=== PATIENT | female | born 1970 | race Caucasian/White ===

== ENCOUNTER 2017-11-19 11:38 | Emergency (ER) | payer BC ==
[2017-11-19 12:00] VITALS: RESP 18
--- NOTE | 2017-11-19 12:31 | ED ---
Dizziness HPI - General Chief Complaint: Dizziness Stated Complaint: dizzy Time Seen by Provider: 11/19/17 12:16 Source: patient Mode of arrival: ambulatory Limitations: no limitations - History of Present Illness Initial Comments: This 47-year-old white female presents with a complaint of some dizziness. She describes it as a spinning type of sensation. It is sometimes related to postural changes. The onset occurred this morning. She does complain of some slight left ear pain and fullness. She apparently has a long history of similar symptoms. She just had a left ear tube placed a couple months ago due to chronic left ear infections associated with dizziness. She denies any drainage from this tube. She cannot remember the ENT physician's name that placed at but it is not out of our hospital. She denies any fevers or chills. She does relate a degree of anxiety. She also requests a work note. She has had Antivert in the past and this seems to help. No other complaints or modifying factors. - Related Data Home Medications Medication Instructions Recorded Confirmed Baclofen [Lioresal] 10 mg PO TID PRN 11/19/17 11/19/17 Cymbalta(Unknown Dose) 1 cap PO BID 11/19/17 11/19/17 HYDROcodone/APAP 10-325MG [[place] 1 tab PO TID PRN 11/19/17 11/19/17 10-325] Omeprazole [PriLOSEC] 20 mg PO DAILY 11/19/17 11/19/17 Previous Rx's Medication Instructions Recorded Amoxic-Pot Clav 875-125Mg 1 each PO Q12HR #20 tablet 11/19/17 [Augmentin Xr 875-125] Meclizine [Antivert] 25 mg PO TID PRN #20 tab 11/19/17 Allergies Allergy/AdvReac Type Severity Reaction Status Date / Time Sulfa (Sulfonamide Allergy Rash/Hives Verified 11/19/17 12:03 Antibiotics) Review of Systems ROS Statement: Those systems with pertinent positive or pertinent negative responses have been documented in the HPI. ROS Other: All systems not noted in ROS Statement are negative. Past Medical History Past Medical History: GERD/Reflux Additional Past Medical History / Comment(s): DDD History of Any Multi-Drug Resistant Organisms: None Reported Past Surgical History: Appendectomy, Section Additional Past Surgical History / Comment(s): liver tumr removed Past Psychological History: Depression Smoking Status: Current every day smoker Past Alcohol Use History: Occasional Past Drug Use History: Marijuana General Exam - General Exam Comments Initial Comments: GENERAL: The patient is well nourished and well hydrated. VITAL SIGNS: Heart rate, blood pressure, respiratory rate reviewed as recorded in nurse's notes. EYES: Pupils are round and reactive. Extraocular movements are intact. No conjunctival / lid redness or swelling. ENT: No external evidence of injury, swelling, or ecchymosis. Airway is patent. Throat is clear. The right ear is clear. Left tympanic membrane does have an ear tube in place. There is no current drainage. There may be some mild surrounding erythema. There is some mild wax noted. NECK: Nontender. No swelling or evidence of injury. No subcutaneous emphysema. Trachea is midline. No thyroid mass. HEART: Regular rate and rhythm. Good peripheral pulses. LUNGS/CHEST: Breath sounds clear and equal bilaterally. No rales, rhonchi, or wheezes. No ecchymosis, subcutaneous emphysema, or tenderness. ABDOMEN: Abdomen soft without tenderness. No palpable masses or organomegaly. No peritoneal signs. No abdominal wall swelling or ecchymosis. EXTREMITIES: No extremity tenderness. Normal muscle tone and function. No thoracolumbar tenderness. NEUROLOGIC: Sensation is grossly intact. Cranial nerve exam reveals face is symmetrical, tongue is midline, speech is clear. SKIN: No abrasions or ecchymosis is noted. No induration or masses noted. PSYCHIATRIC: Alert and oriented. Appropriate behavior and judgment. Limitations: no limitations Course Vital Signs 11/19/17 11:56 Temperature 98.3 F Pulse Rate 86 Respiratory 18 Rate Blood Pressure 122/58 O2 Sat by Pulse 96 Oximetry Medical Decision Making - Medical Decision Making The patient is seen and examined. It is felt as though she likely does have a degree of vertigo. This is likely due to a left ear infection versus chronic vertigo associated with her left ear. She appears quite well clinically. She does have some anxiety and states that her fianc 2 weeks ago and she thinks kicked out of her house. It is felt that she should follow-up closely with her primary care physician and/or a psychologist in this regard. She appears stable for discharge and will be treated with antibiotics for likely left otitis media. This felt as though her left ear to potentially could be blocked with wax and that she should follow-up closely with her yearsand throat physician for further evaluation in this regard. Disposition Clinical Impression: Vertigo, Anxiety, Left otitis media Disposition: HOME SELF-CARE Condition: Fair Instructions: Vertigo (ED), Otitis Media (ED), Anxiety (ED) Prescriptions: Amoxic-Pot Clav 875-125Mg [Augmentin Xr 875-125] 1 each PO Q12HR #20 tablet Meclizine [Antivert] 25 mg PO TID PRN #20 tab PRN Reason: Vertigo Is patient prescribed a controlled substance at d/c from ED?: No Referrals: None,Stated [Primary Care Provider] - 1-2 days Time of Disposition: 12:30
[2017-11-19] MEDS ORDERED: MECLIZINE 12.5 MG TAB PO STA (12:33)
[2017-11-19 13:05] VITALS: BP 125/79; PULSE 76; TEMP 98.4
== END 2017-11-19 13:05 | disposition home or self-care (01) ==
LOC: EC 11:38
DX: H66.92 Otitis media, unspecified, left ear (principal); R42 Dizziness and giddiness; F41.9 Anxiety disorder, unspecified; K21.9 Gastro-esophageal reflux disease without esophagitis; F32.9 Major depressive disorder, single episode, unspecified; F17.200 Nicotine dependence, unspecified, uncomplicated; Z96.22 Myringotomy tube(s) status; Z79.899 Other long term (current) drug therapy; Z88.2 Allergy status to sulfonamides
CPT/HCPCS: 99283

== ENCOUNTER 2018-01-16 08:35 | Emergency (ER) | payer BC ==
[2018-01-16 08:45] VITALS: RESP 17; TEMP 98.4
[2018-01-16] MEDS ORDERED: MORPHINE SULFATE 2 MG/ML SYRINGE IVP STA (08:56)
[2018-01-16] MEDS ORDERED: SODIUM CHLORIDE 0.9% 1,000 ML IV STA (08:56)
[2018-01-16] MEDS ORDERED: NITROGLYCERIN OINT 1 INCH/GM PACKET TOPICAL STA (08:56)
--- NOTE | 2018-01-16 09:01 | ED ---
Chest Pain HPI - General Chief Complaint: Chest Pain Stated Complaint: CHEST PAIN Time Seen by Provider: 01/16/18 08:45 Source: patient, EMS Mode of arrival: EMS Limitations: no limitations - History of Present Illness Initial Comments: 47 years old female with the chest pain, she woke up for 30 the morning to go to work when she arrived at work she noticed chest pain that was around 7:30 AM she was dizzy she felt like she is going to pass out chest pain was going towards her neck and the left arm she noticed nausea no vomiting she had a cold sweats. Also complaining about shortness of breath and chest pain gets worse with deep breaths. No abdominal pain no frequency urgency dysuria no symptoms of TIA or CVA - Related Data Home Medications Medication Instructions Recorded Confirmed HYDROcodone/APAP 10-325MG [[place] 1 tab PO TID PRN 11/19/17 01/16/18 10-325] Omeprazole [PriLOSEC] 20 mg PO DAILY 11/19/17 01/16/18 Baclofen [Lioresal] 20 mg PO BID 01/16/18 01/16/18 DULoxetine HCL [Cymbalta] 30 mg PO BID 01/16/18 01/16/18 Allergies Allergy/AdvReac Type Severity Reaction Status Date / Time Sulfa (Sulfonamide Allergy Rash/Hives Verified 01/16/18 09:56 Antibiotics) Review of Systems ROS Statement: Those systems with pertinent positive or pertinent negative responses have been documented in the HPI. ROS Other: All systems not noted in ROS Statement are negative. EKG Findings - EKG Comments: EKG Findings:: EKG is normal sinus, ventricular rate is 69 ND interval is 152 QRS duration is 92 QT/QTc is 396/424 review of this EKG does not reveal any ST elevation or ST depression Past Medical History Past Medical History: GERD/Reflux Additional Past Medical History / Comment(s): DDD History of Any Multi-Drug Resistant Organisms: None Reported Past Surgical History: Appendectomy, Section Additional Past Surgical History / Comment(s): liver tumr removed Past Psychological History: Depression Smoking Status: Current every day smoker Past Alcohol Use History: Occasional Past Drug Use History: Marijuana General Exam - General Exam Comments Initial Comments: General: The patient is awake and alert, in no distress, and does not appear acutely ill. Skin: Skin is warm and dry and no rashes or lesions are noted. Eye: Pupils are equal, round and reactive to light, extra-ocular movements are intact; there is normal conjunctiva bilaterally. Ears, nose, mouth and throat: There are moist mucous membranes and no oral lesions. Neck: The neck is supple, there is no tenderness or JVD. Cardiovascular: There is a regular rate and rhythm. No murmur, rub or gallop is appreciated. Respiratory: To auscultation bilateral, exam consistent with a moderate COPD Gastrointestinal: Soft, non-distended, non-tender abdomen without masses or organomegaly noted. There is no rebound or guarding present. Bowel sounds are unremarkable. Back: There is no tenderness to palpation in the midline. There is no obvious deformity. Musculoskeletal: Normal ROM, no tenderness, There is no pedal edema. There is no calf tenderness or swelling. No cords were appreciated. Neurological: CN II-XII intact, Cranial nerves III through XII are intact. There are no obvious motor or sensory deficits. Coordination appears grossly intact. Speech is normal. Psychiatric: Cooperative, stress, she recently lost her feels depressed but denies any suicidal or homicidal ideation Limitations: no limitations Course Vital Signs 01/16/18 01/16/18 08:41 10:06 Temperature 98.4 F Pulse Rate 71 70 Respiratory 17 17 Rate Blood Pressure 128/66 147/79 O2 Sat by Pulse 99 98 Oximetry She was reassessed at 10 AM, troponin was delayed for somehow delaying the disposition troponin is unremarkable EKG is unremarkable CBC, compressive metabolic metabolic panel and chest imaging are totally within normal range. Considering that she is 47 years old and now she has smoked for a long time I had recommended that she stays in the hospital observation for 3 sets of cardiac markers and cardiology consult so we could proceed with a definitive evaluation as far as ischemic heart disease is concerned that she wants to leave , however 15 minutes I did explain the patient that she stays in the hospital and she made her intention clear that she wants to leave. She was advised to call [facility] in the morning to make up a follow-up appointment she agreed with that education and counseling was done about smoking cessation as well Disposition Clinical Impression: Chest pain Disposition: Left Against Medical Advice Condition: Fair Instructions: Chest Pain (ED) Additional Instructions: Is advised to take aspirin 81 mg by mouth daily Is patient prescribed a controlled substance at d/c from ED?: No Referrals: Krishna Canas MD [Primary Care Provider] - 1-2 days
[2018-01-16 09:08] LABS: Basophils % (A) 0 %; Eosinophils # (A) 0.4 k/uL (0-0.7); Eosinophils % (A) 4 %; HCT 37.2 % (34.0-46.0); HGB 12.3 gm/dL (11.4-16.0); Lymphocytes # (A) 3.5 k/uL (1.0-4.8); Lymphocytes % (A) 39 %; MCH 31.5 pg (25.0-35.0); MCHC 33.2 g/dL (31.0-37.0); MCV 95.1 fL (80.0-100.0); Mean Platelet Volume 7.2; Monocytes # (A) 0.5 k/uL (0-1.0); Monocytes % (A) 5 %; Neutrophils # (A) 4.4 k/uL (1.3-7.7); Neutrophils % (A) 49 %; Platelet Count 280 k/uL (150-450); RBC 3.91 m/uL (3.80-5.40); RDW 13.2 % (11.5-15.5); WBC 8.9 k/uL (3.8-10.6)
[2018-01-16 09:19] LABS: Albumin 3.9 g/dL (3.5-5.0); Calcium 9.7 mg/dL (8.4-10.2); Magnesium 1.9 mg/dL (1.6-2.3); Potassium 4.2 mmol/L (3.5-5.1); Total Bilirubin 0.3 mg/dL (0.2-1.3); Total Protein 6.1 g/dL (6.3-8.2)
[2018-01-16 09:21] LABS: D-Dimer 0.24 mg/L FEU (<0.60); Prothrombin Time 9.5 sec (9.0-12.0)
[2018-01-16 09:28] LABS: Creatine Kinase 60 U/L (30-135)
[2018-01-16 09:41] LABS: Creatine Kinase MB 0.3 ng/mL (0.0-2.4); Troponin I <0.012 ng/mL (0.000-0.034)
--- NOTE | 2018-01-16 09:56 | XR ---
EXAMINATION TYPE: XR chest 2V DATE OF EXAM: 01/16/2018 COMPARISON: NONE TECHNIQUE: PA and lateral views submitted. HISTORY: Chest pain FINDINGS: The lungs are clear and there is no pneumothorax, pleural effusion, or focal pneumonia. Hypertrophi c and degenerative change of the spine. Hyperinflation suggests COPD. Biapical pleural thickening. IMPRESSION: 1. No acute process.
[2018-01-16 10:09] VITALS: BP 147/79; PULSE 70
--- NOTE | 2018-01-20 02:20 | CDI ---
Documentation Clarification OP Dear Gatito SANDRA MD Please provide smoking cessation time. Thank you, Nando Oviedo [employer] Administrator If you have any questions, please contact [facility] at [phone] [facility]
== END 2018-01-16 10:28 | disposition left against medical advice (07) ==
LOC: EC 08:35
DX: R07.1 Chest pain on breathing (principal); R06.02 Shortness of breath; R11.0 Nausea; K21.9 Gastro-esophageal reflux disease without esophagitis; F32.9 Major depressive disorder, single episode, unspecified; F17.200 Nicotine dependence, unspecified, uncomplicated; Z71.6 Tobacco abuse counseling; Z79.899 Other long term (current) drug therapy; Z88.2 Allergy status to sulfonamides
CPT/HCPCS: 99285; 99407; 96374; 96361; 36415; 93005; 85379; 80053; 82550; 82553; 83735; 84484; 85025; 85610; 85730; 71046; J2270

== ENCOUNTER 2018-04-09 13:30 | Inpatient (IN) | payer BC ==
[2018-04-09] MEDS ORDERED: MORPHINE SULFATE 2 MG/ML SYRINGE IVP STA (14:36)
[2018-04-09] MEDS ORDERED: LORazepam 2 MG/ML INJ IV STA (14:37)
--- NOTE | 2018-04-09 14:44 | ED ---
General Adult HPI - General Chief complaint: Dizziness Stated complaint: Dizziness/weakness Time Seen by Provider: 04/09/18 13:35 Source: patient, RN notes reviewed Mode of arrival: ambulatory Limitations: no limitations - History of Present Illness Initial comments: This is a 48-year-old female presents emergency department stating that on Saturday she had chest pain that radiated to her left arm and she had tingling in her left arm. Patient stated that hasn't occurred until again this morning. Patient states the reason she came in however she was at work and started having a headache yesterday and throughout the night it got worse this morning it was at its peak. Patient states the pain was so bad this morning she vomited times one. Patient states since that time the headache has gotten better but it is not gone away. Patient states she also this morning had chest pain again with tingling in the left arm. [facility] were concerned about her chest pain as well as about the headache so they sent to the emergency department. Patient states she has no weakness in the left arm though [facility] told me that they thought she had weakness patient adamantly denied it and stated it was only tingling. Patient denies any nausea at this time. Patient denies any belly pain at this time patient denies any recent fever chills or cough. Patient denies any neck pain or stiffness. Patient states she's been under quite a bit of stress since October when her fianc and since then she's been kicked out of her apartment and is been struggling a bit. - Related Data Home Medications Medication Instructions Recorded Confirmed HYDROcodone/APAP 10-325MG [[place] 1 tab PO TID PRN 11/19/17 04/09/18 10-325] Omeprazole [PriLOSEC] 20 mg PO DAILY 11/19/17 04/09/18 Baclofen [Lioresal] 20 mg PO TID PRN 01/16/18 04/09/18 DULoxetine HCL [Cymbalta] 30 mg PO BID 01/16/18 04/09/18 ALPRAZolam [Xanax] 0.25 mg PO BID PRN 04/09/18 04/09/18 Allergies Allergy/AdvReac Type Severity Reaction Status Date / Time Sulfa (Sulfonamide Allergy Rash/Hives Verified 04/09/18 15:47 Antibiotics) Review of Systems ROS Statement: Those systems with pertinent positive or pertinent negative responses have been documented in the HPI. ROS Other: All systems not noted in ROS Statement are negative. Past Medical History Past Medical History: GERD/Reflux Additional Past Medical History / Comment(s): DDD History of Any Multi-Drug Resistant Organisms: None Reported Past Surgical History: Appendectomy, Section Additional Past Surgical History / Comment(s): liver tumor removed Past Psychological History: Depression Smoking Status: Current every day smoker Past Alcohol Use History: Occasional Past Drug Use History: Marijuana General Exam - General Exam Comments Initial Comments: GENERAL: Patient is well-developed and well-nourished. Patient is nontoxic and well- hydrated and is in mild distress. ENT: Neck is soft and supple. No significant lymphadenopathy is noted. Oropharynx is clear. Moist mucous membranes. Neck has full range of motion without eliciting any pain. EYES: The sclera were anicteric and conjunctiva were pink and moist. Extraocular movements were intact and pupils were equal round and reactive to light. Eyelids were unremarkable. PULMONARY: Unlabored respirations. Good breath sounds bilaterally. No audible rales rhonchi or wheezing was noted. CARDIOVASCULAR: There is a regular rate and rhythm without any murmurs gallops or rubs. ABDOMEN: Soft and nontender with normal bowel sounds. No palpable organomegaly was noted. There is no palpable pulsatile mass. SKIN: Skin is clear with no lesions or rashes and otherwise unremarkable. NEUROLOGIC: Patient is alert and oriented x3. Cranial nerves II through XII are grossly intact. Motor and sensory are also intact. Normal speech, volume and content. Symmetrical smile. MUSCULOSKELETAL: Normal extremities with adequate strength and full range of motion. No lower extremity swelling or edema. No calf tenderness. LYMPHATICS: No significant lymphadenopathy is noted PSYCHIATRIC: Patient is very anxious and tearful throughout her interview. Limitations: no limitations Course Vital Signs 04/09/18 04/09/18 13:31 15:01 Temperature 98.2 F Pulse Rate 77 86 Respiratory 18 16 Rate Blood Pressure 135/83 169/81 O2 Sat by Pulse 98 98 Oximetry Medical Decision Making - Medical Decision Making EKG shows normal sinus rhythm at 71 bpm HI interval is on a 42 QRS is 88 QT interval 42 QTC is 436. Patient's EKG shows no ST segment elevation or depression After I gave the patient 2 mg of morphine and went back and reevaluated her and she stated her headache was a was gone. Patient was comfortably talking on the phone in no distress. CT of the head showed no acute abnormality. Chest x-ray showed no acute normalities. [facility] consult cardiology for the chest pain and a repeat cardiac enzymes. - Lab Data Result diagrams: 04/09/18 14:37 04/09/18 14:37 Lab Results 04/09/18 04/09/18 04/09/18 Range/Units 14:37 14:37 14:37 WBC 8.3 (3.8-10.6) k/uL RBC 4.43 (3.80-5.40) m/uL Hgb 14.3 (11.4-16.0) gm/dL Hct 43.7 (34.0-46.0) % MCV 98.6 (80.0-100.0) fL MCH 32.2 (25.0-35.0) pg MCHC 32.6 (31.0-37.0) g/dL RDW 12.8 (11.5-15.5) % Plt Count 277 (150-450) k/uL Neutrophils % 60 % Lymphocytes % 32 % Monocytes % 5 % Eosinophils % 2 % Basophils % 1 % Neutrophils # 5.0 (1.3-7.7) k/uL Lymphocytes # 2.6 (1.0-4.8) k/uL Monocytes # 0.4 (0-1.0) k/uL Eosinophils # 0.2 (0-0.7) k/uL Basophils # 0.0 (0-0.2) k/uL PT (9.0-12.0) sec INR (<1.2) APTT (22.0-30.0) sec Sodium 144 (137-145) mmol/L Potassium 4.1 (3.5-5.1) mmol/L Chloride 108 H (98-107) mmol/L Carbon Dioxide 27 (22-30) mmol/L Anion Gap 9 mmol/L BUN 20 H (7-17) mg/dL Creatinine 0.97 (0.52-1.04) mg/dL Est GFR (CKD-EPI)AfAm 79 (>60 ml/min/1.73 sqM) Est GFR (CKD-EPI)NonAf 69 (>60 ml/min/1.73 sqM) Glucose 95 (74-99) mg/dL Calcium 10.4 H (8.4-10.2) mg/dL Magnesium 1.9 (1.6-2.3) mg/dL Total Bilirubin 0.3 (0.2-1.3) mg/dL AST 31 (14-36) U/L ALT 35 (9-52) U/L Alkaline Phosphatase 107 (38-126) U/L Total Creatine Kinase 71 (30-135) U/L CK-MB (CK-2) 0.7 (0.0-2.4) ng/mL CK-MB (CK-2) Rel Index 1.0 Troponin I <0.012 (0.000-0.034) ng/mL Total Protein 7.3 (6.3-8.2) g/dL Albumin 4.5 (3.5-5.0) g/dL 04/09/18 Range/Units 14:37 WBC (3.8-10.6) k/uL RBC (3.80-5.40) m/uL Hgb (11.4-16.0) gm/dL Hct (34.0-46.0) % MCV (80.0-100.0) fL MCH (25.0-35.0) pg MCHC (31.0-37.0) g/dL RDW (11.5-15.5) % Plt Count (150-450) k/uL Neutrophils % % Lymphocytes % % Monocytes % % Eosinophils % % Basophils % % Neutrophils # (1.3-7.7) k/uL Lymphocytes # (1.0-4.8) k/uL Monocytes # (0-1.0) k/uL Eosinophils # (0-0.7) k/uL Basophils # (0-0.2) k/uL PT 9.6 (9.0-12.0) sec INR 1.0 (<1.2) APTT 24.4 (22.0-30.0) sec Sodium (137-145) mmol/L Potassium (3.5-5.1) mmol/L Chloride (98-107) mmol/L Carbon Dioxide (22-30) mmol/L Anion Gap mmol/L BUN (7-17) mg/dL Creatinine (0.52-1.04) mg/dL Est GFR (CKD-EPI)AfAm (>60 ml/min/1.73 sqM) Est GFR (CKD-EPI)NonAf (>60 ml/min/1.73 sqM) Glucose (74-99) mg/dL Calcium (8.4-10.2) mg/dL Magnesium (1.6-2.3) mg/dL Total Bilirubin (0.2-1.3) mg/dL AST (14-36) U/L ALT (9-52) U/L Alkaline Phosphatase (38-126) U/L Total Creatine Kinase (30-135) U/L CK-MB (CK-2) (0.0-2.4) ng/mL CK-MB (CK-2) Rel Index Troponin I (0.000-0.034) ng/mL Total Protein (6.3-8.2) g/dL Albumin (3.5-5.0) g/dL Disposition Clinical Impression: Chest pain, Arm paresthesia, left Disposition: ADMITTED IP TO THIS [facility] Referrals: Divya Judge III, MD [Primary Care Provider] - 1-2 days Time of Disposition: 16:00
[2018-04-09 14:52] LABS: Basophils % (A) 1 %; Eosinophils # (A) 0.2 k/uL (0-0.7); Eosinophils % (A) 2 %; HCT 43.7 % (34.0-46.0); HGB 14.3 gm/dL (11.4-16.0); Lymphocytes # (A) 2.6 k/uL (1.0-4.8); Lymphocytes % (A) 32 %; MCH 32.2 pg (25.0-35.0); MCHC 32.6 g/dL (31.0-37.0); MCV 98.6 fL (80.0-100.0); Mean Platelet Volume 7.2; Monocytes # (A) 0.4 k/uL (0-1.0); Monocytes % (A) 5 %; Neutrophils % (A) 60 %; Platelet Count 277 k/uL (150-450); RBC 4.43 m/uL (3.80-5.40); RDW 12.8 % (11.5-15.5); WBC 8.3 k/uL (3.8-10.6)
[2018-04-09 14:59] LABS: Partial Thromboplastin Time 24.4 sec (22.0-30.0); Prothrombin Time 9.6 sec (9.0-12.0)
[2018-04-09 15:12] LABS: Albumin 4.5 g/dL (3.5-5.0); Calcium 10.4 mg/dL (8.4-10.2); Magnesium 1.9 mg/dL (1.6-2.3); Potassium 4.1 mmol/L (3.5-5.1); Total Bilirubin 0.3 mg/dL (0.2-1.3); Total Protein 7.3 g/dL (6.3-8.2)
[2018-04-09 15:16] LABS: Creatine Kinase 71 U/L (30-135)
[2018-04-09 15:29] LABS: Creatine Kinase MB 0.7 ng/mL (0.0-2.4); Troponin I <0.012 ng/mL (0.000-0.034)
--- NOTE | 2018-04-09 15:34 | CT ---
EXAMINATION TYPE: CT brain wo con DATE OF EXAM: 04/09/2018 COMPARISON: None HISTORY: Pain Unenhanced CT of the brain was performed. The ventricles, basal cisterns and sulci overlying the cerebral convexities demonstrate mild enlargem ent. There is no evidence for intracranial hemorrhage or sulcal effacement. There is decreased attenuation about the periventricular white matter and deep white matter of both c erebral hemispheres, compatible with chronic small vessel ischemia. Differential diagnosis does inclu de demyelination. No mass effects are seen.No midline shift. Osseous calvarium is intact. Mild mucosal thickening right maxillary sinus. If symptoms persist consider MRI. IMPRESSION: 1. Age related atrophic and chronic small vessel ischemic change without acute intracranial process s een at this time.
--- NOTE | 2018-04-09 15:40 | XR ---
EXAMINATION TYPE: XR chest 2V DATE OF EXAM: 04/09/2018 COMPARISON: None HISTORY: 48-year-old female with chest pain TECHNIQUE: Frontal and lateral views FINDINGS: The cardiomediastinal silhouette, aorta, and pulmonary vasculature are within normal limits. Mild int erstitial prominence as a chronic appearance. No consolidation or pleural effusion. IMPRESSION: Chronic changes without acute cardiopulmonary process.
[2018-04-09] MEDS ORDERED: NITROGLYCERIN SL TABS 0.4 MG TAB SUBLINGUAL PRN (16:09)
[2018-04-09] MEDS: NITROGLYCERIN OINT 1 INCH/GM PACKET TOPICAL SCH ×2 (17:52→23:50)
[2018-04-09] MEDS ORDERED: TEMAZEPAM 15 MG CAP PO PRN (18:08)
[2018-04-09] MEDS ORDERED: ACETAMINOPHEN TAB 500 MG TAB PO PRN (18:08)
[2018-04-09] MEDS: HYDROcodone/APAP 10-325MG 1 EACH TAB PO PRN (20:15)
[2018-04-09] MEDS: DULoxetine HCL 30 MG CAPSULE.DR PO SCH (20:15)
[2018-04-09] MEDS: LORazepam 2 MG/ML INJ IV PRN (20:16)
[2018-04-09 20:56] LABS: Creatine Kinase 68 U/L (30-135)
[2018-04-09 21:06] LABS: Creatine Kinase MB 0.8 ng/mL (0.0-2.4); Troponin I <0.012 ng/mL (0.000-0.034)
[2018-04-09 21:44] VITALS: RESP 16
[2018-04-09] MEDS: NICOTINE 21MG/24HR PATCH TRANSDERM SCH (21:57)
--- NOTE | 2018-04-09 22:10 | HP ---
HISTORY AND PHYSICAL DATE OF SERVICE: 04/09/2018. CHIEF COMPLAINT: Chest pain. HISTORY OF PRESENT ILLNESS: This 48-year-old woman with a past history of asthma, fibromyalgia, GERD, hypertension, history of bronchitis, history of depression, being followed by Dr. Judge in the outpatient setting, has been having chest pain for the last 2 days. The pain is situated mostly in the left side of the chest, which is rather sharp in character and was radiating to the left arm with some tingling of the left arm. The patient also complains of headache also. The patient also reports significant stress in life and also made some comment to the staff to the tune of harming herself. Please refer to the staff notes for further details. At this time, the patient is under suicide precautions and psychiatric evaluation also been sought. There is no history of fever, rigors. No headache loss of consciousness, seizures. No history of any palpitations, hematochezia or melena at this time. PAST MEDICAL HISTORY: Asthma, fibromyalgia, GERD, hypertension, history of pneumonia, history of bronchitis, history of depression. MEDICATIONS: Prior to admission include: 1. Prilosec 20 mg p.o. daily. 2. [place] 10 mg t.i.d. p.r.n. 3. Cymbalta 30 mg p.o. b.i.d. 4. Lioresal 20 mg t.i.d. p.r.n. 5. Xanax 0.5 b.i.d. p.r.n. ALLERGIES: SULFA. FAMILY HISTORY: History of hypertension, hyperlipidemia, colon cancer. SOCIAL HISTORY: History of current smoking. Occasional alcohol intake. REVIEW OF SYSTEMS: ENT: No diminished hearing or vision. CARDIOVASCULAR: As mentioned earlier. GI: No nausea. : No dysuria or hematuria. NERVOUS SYSTEM: No numbness or weakness. ALLERGY/IMMUNOLOGY: None. MUSCULOSKELETAL: As mentioned earlier. HEMATOLOGY: None. ENDOCRINE: No history of diabetes or hypothyroidism. CONSTITUTIONAL: As mentioned. RHEUMATOLOGY: Negative. PSYCHIATRY: As mentioned. PHYSICAL EXAMINATION: Alert, oriented x3. Pulse is 80, blood pressure is 160/81, temperature is normal, pulse ox 98% on 2 L. HEENT: Conjunctivae normal. Oral mucosa moist. NECK: No jugular venous distention. No lymph node enlargement. CARDIOVASCULAR: S1 and S2 muffled. LUNGS: Breath sounds diminished in the bases. No rhonchi. No crackles. ABDOMEN: Soft, nontender. No mass palpable. LEGS: No edema, no swelling. NERVOUS SYSTEM: Higher functions as mentioned. Moves all four limbs equally. No focal motor or sensory deficits. LYMPHATICS: No lymph nodes palpable in the neck, axillae or groin. SKIN: No ulcer, rashes or bleeding. JOINTS: No deformity or arthropathy. LABS: CBC within normal limits. Calcium is 10.4. Chest x-ray and CT scan of brain noted; no acute abnormality. EKG shows possible left atrial enlargement, no acute changes. ASSESSMENT: 1. Chest pain, possible unstable angina. 2. Possible depression. 3. History of asthma. 4. Fibromyalgia. 5. Gastroesophageal reflux disease. 6. Hypertension. 7. History of pneumonia. 8. History of bronchitis. 9. section. 10.Continued nicotine dependence. RECOMMENDATIONS AND DISCUSSION: This 48-year-old woman who presented with multiple complex medical issues. We will monitor the patient closely, continue the current management and symptomatic treatment. Due to old myocardial infarction, Cardiology consultation. I would also recommend psychiatric evaluation for depression. The patient also had some left arm numbness. Neurology also will be sought and neuro checks will also will be done. Overall prognosis guarded because of multiple complex medical issues. Smoking cessation. See orders for details. Follow up labs. MMODL / IJN: [id number] /
--- NOTE | 2018-04-09 22:33 | US ---
EXAMINATION TYPE: US carotid duplex BILAT DATE OF EXAM: 04/09/2018 COMPARISON: NONE CLINICAL HISTORY: stroke. Stroke EXAM MEASUREMENTS: RIGHT: Peak Systolic Velocity (PSV) cm/sec ----- Right CCA: 95.8 ----- Right ICA: 76.9 ----- Right ECA: 71.1 ICA/CCA ratio: 0.8 RIGHT: End Diastole cm/sec ----- Right CCA: 26.0 ----- Right ICA: 26.0 ----- Right ECA: 13.2 LEFT: Peak Systolic Velocity (PSV) cm/sec ----- Left CCA: 79.8 ----- Left ICA: 71.1 ----- Left ECA: 78.4 ICA/CCA ratio: 0.9 LEFT: End Diastole cm/sec ----- Left CCA: 21.7 ----- Left ICA: 21.7 ----- Left ECA: 11.5 VERTEBRALS (direction of flow): Right Vertebral: Antegrade Left Vertebral: Antegrade Rhythm: Normal No significant stenosis seen IMPRESSION: Criteria for Assigning % of Stenosis / Diameter reduction (Estimation based on the indirect measurements of the internal carotid artery velocities (ICA PSV). 1. Normal (no stenosis)=ICA PSV < 125 cm/s: ratio < 2.0: ICA EDV<40 cm/s. 2. Less than 50% stenosis=ICA PSV < 125 cm/s: ratio < 2.0: ICA EDV<40 cm/s. 3. 50 to 69% stenosis=ICA PSV of 125 to 230 cm/s: ration 2.0 ? 4.0: ICA EDV 40-100 cm/s. 4. Greater than 70% stenosis to near occlusion= ICA PSV > 230 cm/s: ratio > 4.0: ICA EDV > 100 cm/s. 5. Near occlusion= ICA PSV velocities may be low or undetectable: variable ratio and ICA EDV. 6. Total occlusion=unable to detect flow. there is antegrade flow in the vertebral arteries. The images and measurements suggest less than 10% stenosis in both internal carotid arteries.
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
[2018-04-10] MEDS: LORazepam 2 MG/ML INJ IV PRN (02:10)
[2018-04-10 02:46] LABS: Appearance,Urine Turbid (Clear); Bacteria,Urine Many /hpf; Bilirubin,Urine Negative (Negative); Blood,Urine Negative (Negative); Color,Urine Yellow; Glucose,Urine (UA) Negative (Negative); Ketones,Urine Negative (Negative); Leukocyte Esterase,Urine Large (Negative); Mucus,Urine Many /hpf; Nitrite,Urine Negative (Negative); Protein,Urine 1+ (Negative); Specific Gravity,Urine 1.019 (1.001-1.035); Urobilinogen,Urine <2.0 mg/dL (<2.0); WBC,Urine >182 /hpf (0-5)
[2018-04-10 02:51] LABS: Amphetamine Screen,Urine Not Detected (NotDetected); Barbiturate Screen,Urine Not Detected (NotDetected); Benzodiazepines Screen,Urine Detected (NotDetected); Cocaine Screen,Urine Not Detected (NotDetected); Methadone Screen, Urine Not Detected (NotDetected); Opiate Screen,Urine Detected (NotDetected); Oxycodone Screen, Urine Not Detected (NotDetected); Phencyclidine Screen,Urine Not Detected (NotDetected); Tricyclic Antidepressant,Urine Not Detected (NotDetected); Urn Cannabinoid Scrn Detected (NotDetected)
[2018-04-10 03:24] LABS: Basophils % (A) 0 %; Eosinophils # (A) 0.3 k/uL (0-0.7); Eosinophils % (A) 3 %; HCT 40.8 % (34.0-46.0); Lymphocytes % (A) 47 %; MCH 32.2 pg (25.0-35.0); MCHC 31.8 g/dL (31.0-37.0); MCV 101.2 fL (80.0-100.0); Mean Platelet Volume 7.4; Monocytes # (A) 0.4 k/uL (0-1.0); Monocytes % (A) 5 %; Neutrophils # (A) 3.6 k/uL (1.3-7.7); Neutrophils % (A) 42 %; Platelet Count 272 k/uL (150-450); RBC 4.04 m/uL (3.80-5.40); WBC 8.5 k/uL (3.8-10.6)
[2018-04-10 03:28] LABS: Anion Gap 6 mmol/L; Blood Urea Nitrogen 21 mg/dL (7-17); Calcium 9.8 mg/dL (8.4-10.2); Carbon Dioxide 27 mmol/L (22-30); Chloride 106 mmol/L (98-107); Cholesterol 270 mg/dL (<200); Glucose 94 mg/dL (74-99); HDL Cholesterol 45 mg/dL (40-60); LDL Cholesterol,Calculated 170 mg/dL (0-99); Potassium 3.8 mmol/L (3.5-5.1); Sodium 139 mmol/L (137-145); Triglycerides 273 mg/dL (<150)
[2018-04-10 03:30] LABS: Creatine Kinase 75 U/L (30-135)
[2018-04-10 03:43] LABS: Creatine Kinase MB 0.9 ng/mL (0.0-2.4); Troponin I <0.012 ng/mL (0.000-0.034)
[2018-04-10] MEDS: NITROGLYCERIN OINT 1 INCH/GM PACKET TOPICAL SCH ×2 (05:45→12:13)
[2018-04-10] MEDS ORDERED: PANTOPRAZOLE 40 MG TABLET PO SCH (07:30)
--- NOTE | 2018-04-10 08:35 | P.CRDCN ---
History of Present Illness Consult date: 04/10/18 Requesting physician: Torsten Bridges Consult reason: chest pain Chief complaint: Chest pain, headache History of present illness: This is a 48-year-old female with history of nicotine dependence, strong family history of premature coronary artery disease in her sister who had a myocardial infarction at the age of 50, hypertension, hyperlipidemia, COPD , nondiabetic, who presented to the hospital mainly on this occasion with symptoms of severe headache and tingling in her left hand and arm. She states that for the couple of days prior she's also been experiencing intermittent chest discomfort which she describes as an ache in her chest. Symptoms occur mostly when she exerts herself, she does not normally get any symptoms with rest. She does get some mild associated shortness of breath with this. Patient is also under considerable amount of stress, apparently recently lost her fianc, and is experiencing some financial hardship at this time. She did have some thoughts of ending her life and for this reason she is under suicide precautions at this time. Blood pressure on arrival here 134/80, heart rate in the 70s, 98% on room air. Blood pressure 130/60, heart rate in the 70s, and he 5% on room air. Initial EKG on arrival here showed a normal sinus rhythm with ST-T wave changes noted in the anterior leads. Sequential EKG performed this morning shows normal sinus rhythm with ST-T wave changes noted in the anterior leads. CAT scan of the brain revealed age-related atrophic and chronic small vessel ischemic change without any acute intracranial process noted at this time. Chest x-ray shows chronic changes without any acute cardiopulmonary process. Carotid duplex study was performed which did not reveal any significant obstructive disease. CBC is normal, sodium 139, potassium 3.8, BUN 21, creatinine 0.8. Troponins have been negative 3. Cholesterol 270, LDL 170 , triglycerides 273, HDL 45. At the time of my examination this morning, patient states that her headache is just faintly there but improved significantly, she denies any chest discomfort this morning. Past Medical History Past Medical History: Asthma, Cancer, Fibromyalgia, GERD/Reflux, Hypertension, Pneumonia Additional Past Medical History / Comment(s): DDD, bronchitis. pt stated has hypertension but not on meds. 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 "has passed blood rectally a few times-last time was few months ago but never f/u with History of Any Multi-Drug Resistant Organisms: None Reported Past Surgical History: Appendectomy, Section Additional Past Surgical History / Comment(s): liver tumor removed-benign, tubel placed lt ear Past Anesthesia/Blood Transfusion Reactions: No Reported Reaction Additional Past Anesthesia/Blood Transfusion Reaction / Comment(s): clausterphobia Smoking Status: Current every day smoker - Past Family History Mother Family Medical History: Cancer, Hyperlipidemia, Hypertension Additional Family Medical History / Comment(s): colon cancer Sister(s) Family Medical History: Myocardial Infarction ([place]) Additional Family Medical History / Comment(s): from [place] at age 50 Father Family Medical History: Hypertension Medications and Allergies Home Medications Medication Instructions Recorded Confirmed Type HYDROcodone/APAP 10-325MG [[place] 1 tab PO TID PRN 11/19/17 04/09/18 History 10-325] Omeprazole [PriLOSEC] 20 mg PO DAILY 11/19/17 04/09/18 History Baclofen [Lioresal] 20 mg PO TID PRN 01/16/18 04/09/18 History DULoxetine HCL [Cymbalta] 30 mg PO BID 01/16/18 04/09/18 History ALPRAZolam [Xanax] 0.25 mg PO BID PRN 04/09/18 04/09/18 History Allergies Allergy/AdvReac Type Severity Reaction Status Date / Time Sulfa (Sulfonamide Allergy Rash/Hives Verified 04/09/18 15:47 Antibiotics) Physical Exam Vitals: Vital Signs Temp Pulse Pulse Resp BP BP Pulse Ox 04/10/18 03:20 77 16 131/67 95 04/09/18 23:37 73 16 107/58 97 04/09/18 20:00 60 16 116/70 96 04/09/18 16:54 80 18 146/77 98 04/09/18 16:13 75 16 160/81 98 04/09/18 15:01 86 16 169/81 98 04/09/18 13:31 98.2 F 77 18 135/83 98 Intake and Output 04/09/18 04/10/18 04/10/18 22:59 06:59 14:59 Intake Total 236 Output Total 100 Balance 236 -100 Intake: Oral 236 Output: Urine 100 Other: Weight 69.9 kg PHYSICAL EXAMINATION: GENERAL: 48-year-old female, appears very depressed, in no acute distress at the time of my examination HEENT: Head is atraumatic, normocephalic. Pupils equal, round. Sclera anicteric. Conjunctiva are clear. Mucous membranes of the mouth are moist. Neck is supple. There is no elevated jugular venous pressure. No carotid bruit is heard. HEART EXAMINATION: Heart S1, S2 normal. No murmur or gallop heard. CHEST EXAMINATION:lungs reveal fine wheezing throughout. ABDOMEN: Soft, nontender. Bowel sounds are heard. No organomegaly noted. EXTREMITIES: 2+ peripheral pulses with no evidence of peripheral edema and no calf tenderness noted. NEUROLOGIC patient is awake, alert and oriented X3. . Results 04/10/18 02:57 04/10/18 02:57 Cardiac Enzymes 04/09/18 04/09/18 04/09/18 Range/Units 14:37 14:37 20:23 AST 31 (14-36) U/L CK-MB (CK-2) 0.7 0.8 (0.0-2.4) ng/mL Troponin I <0.012 <0.012 (0.000-0.034) ng/mL 04/10/18 Range/Units 02:57 AST (14-36) U/L CK-MB (CK-2) 0.9 (0.0-2.4) ng/mL Troponin I <0.012 (0.000-0.034) ng/mL Coagulation 04/09/18 Range/Units 14:37 PT 9.6 (9.0-12.0) sec APTT 24.4 (22.0-30.0) sec Lipids 04/10/18 Range/Units 02:57 Triglycerides 273 H (<150) mg/dL Cholesterol 270 H (<200) mg/dL HDL Cholesterol 45 (40-60) mg/dL CBC 04/09/18 04/10/18 Range/Units 14:37 02:57 WBC 8.3 8.5 (3.8-10.6) k/uL RBC 4.43 4.04 (3.80-5.40) m/uL Hgb 14.3 13.0 (11.4-16.0) gm/dL Hct 43.7 40.8 (34.0-46.0) % Plt Count 277 272 (150-450) k/uL Comprehensive Metabolic Panel 04/09/18 04/10/18 Range/Units 14:37 02:57 Sodium 144 139 (137-145) mmol/L Potassium 4.1 3.8 (3.5-5.1) mmol/L Chloride 108 H 106 (98-107) mmol/L Carbon Dioxide 27 27 (22-30) mmol/L BUN 20 H 21 H (7-17) mg/dL Creatinine 0.97 0.85 (0.52-1.04) mg/dL Glucose 95 94 (74-99) mg/dL Calcium 10.4 H 9.8 (8.4-10.2) mg/dL AST 31 (14-36) U/L ALT 35 (9-52) U/L Alkaline Phosphatase 107 (38-126) U/L Total Protein 7.3 (6.3-8.2) g/dL Albumin 4.5 (3.5-5.0) g/dL Current Medications Generic Name Dose Route Start Last Admin Trade Name Freq PRN Reason Stop Dose Admin Acetaminophen 500 mg 04/09/18 18:08 04/10/18 02:09 Tylenol Tab PO 500 mg Q6HR PRN Administration Fever and/ or Pain Hydrocodone Bitart/Acetaminophen 1 each 04/09/18 18:07 04/09/18 20:15 [place] 10 PO 1 each TID PRN Administration Pain Alprazolam 0.25 mg 04/09/18 18:07 Xanax PO BID PRN Anxiety Aspirin 81 mg 04/10/18 09:00 Aspirin PO DAILY [facility] Atorvastatin Calcium 20 mg 04/10/18 21:00 Lipitor PO HS [facility] Baclofen 20 mg 04/09/18 18:07 Lioresal PO TID PRN Muscle Spasm Duloxetine HCl 30 mg 04/09/18 21:00 04/09/18 20:15 Cymbalta PO 30 mg BID ELGIN Administration Levofloxacin 500 mg/ IV 100 mls @ 100 mls/hr 04/10/18 09:00 Solution IVPB Q24H [facility] Lorazepam 1 mg 04/09/18 20:01 04/10/18 02:10 Ativan IV 1 mg Q4HR PRN Administration Anxiety Nicotine 1 patch 04/09/18 20:15 04/09/18 21:57 Habitrol 21mg/24hr Patch TRANSDERM 1 patch DAILY [facility]GIN Administration Nitroglycerin 1 inch 04/09/18 18:00 04/10/18 05:45 Nitro-Bid Oint TOPICAL Not Given Q6HR [facility] Nitroglycerin 0.4 mg 04/09/18 16:09 Nitrostat SUBLINGUAL Q5M PRN Chest Pain Pantoprazole Sodium 40 mg 04/10/18 07:30 04/10/18 07:03 Protonix PO Not Given AC-BRKFST [facility] Temazepam 15 mg 04/09/18 18:08 Restoril PO HS PRN Insomnia Intake and Output 04/09/18 04/10/18 04/10/18 22:59 06:59 14:59 Intake Total 236 Output Total 100 Balance 236 -100 Intake: Oral 236 Output: Urine 100 Other: Weight 69.9 kg 04/10/18 02:57 04/10/18 02:57 EKG Interpretations (text) EKG shows normal sinus rhythm with T wave inversion noted in the anterior leads. Assessment and Plan Plan: Assessment and plan #1 chest pain with some atypical features for acute coronary syndrome. Troponins are negative 3. EKG shows normal sinus rhythm with T wave inversion noted in the anterior leads. #2 strong family history of premature coronary artery disease in her sister who had a myocardial infarction at the age of 50 #3 nicotine dependence #4 hypertension #5 hyperlipidemia untreated #6 depression and significant recent increased stress levels. #7 suicidal ideation Plan Will obtain an echocardiogram with Doppler study. Start the patient on Lipitor 80 mg now and daily. Continue baby aspirin along with Nitropaste at this time. Further recommendations to follow. DNP note has been reviewed, I agree with a documented findings and plan of care. Patient was seen and examined.
[2018-04-10] MEDS ORDERED: ASPIRIN 81 MG PO SCH (09:00)
[2018-04-10] MEDS ORDERED: ASPIRIN 325 MG TAB PO SCH (09:00)
[2018-04-10] MEDS ORDERED: LEVOFLOXACIN 500MG-D5W PMX 500 MG in DEXTROSE/WATER 1 100ML.BAG IVPB SCH (09:00)
[2018-04-10] MEDS ORDERED: NON-FORMULARY DRUG (Omeprazole 20 MG) PO SCH (09:00)
[2018-04-10] MEDS ORDERED: REGADENOSON 0.4 MG/5 ML SYRINGE IV ONE (09:30)
[2018-04-10] MEDS ORDERED: AMINOPHYLLINE 500 MG/20 ML VIAL IV PRN (09:30)
[2018-04-10] MEDS: NICOTINE 21MG/24HR PATCH TRANSDERM SCH (09:37)
[2018-04-10] MEDS: DULoxetine HCL 30 MG CAPSULE.DR PO SCH (09:37)
[2018-04-10] MEDS: HYDROcodone/APAP 10-325MG 1 EACH TAB PO PRN ×2 (09:41→17:08)
[2018-04-10] MEDS: ALPRAZolam 0.25 MG TAB PO PRN ×2 (09:41→17:09)
--- NOTE | 2018-04-10 09:42 | MR ---
EXAMINATION TYPE: MR brain wo con DATE OF EXAM: 04/10/2018 COMPARISON: CT brain from yesterday HISTORY: Patient with left arm numbness, dizziness, and possible TIA TECHNIQUE: Multiplanar, multisequence imaging of the brain and brainstem is performed without IV cont rast. FINDINGS: Exam slightly suboptimal as there is some motion artifact degradation present. Diffusion weighted images demonstrate no evidence of a recent infarct or other diffusion abnormality. There is no worrisome extra-axial fluid collection. The ventricular system and cisternal spaces are normal in size and appearance. The brain volume is age appropriate. There are scattered small foci o f T2 hyperintensity seen throughout the white matter bilaterally. Approximately 10 scattered lesions are present. There is 4 mm lesion right frontal lobe axial image 19 for reference. Lesions are nonspe cific in appearance and distribution. Midline structures demonstrate normal morphology. The craniocervical junction appears within normal limits. Normal vascular flow voids are present. There is moderate mucosal thickening in the right max illary sinus otherwise paranasal sinuses are grossly clear. The globes are intact. Increased fluid si gnal left mastoid air cells is redemonstrated. More patchy increased fluid signal inferior right mast oid air cells is redemonstrated. IMPRESSION: 1. No evidence of a recent infarct. 2. Mild nonspecific white matter changes most likely on basis of product of chronic small vessel isch emic change in patient this age. 3. Possible left greater than right mastoiditis, clinical correlation advised.
[2018-04-10] MEDS: BACLOFEN 10 MG TAB PO PRN ×2 (10:08→17:09)
[2018-04-10 11:08] VITALS: BMI 21.4
--- NOTE | 2018-04-10 11:54 | ECHOF ---
Referral Reason:Stroke MEASUREMENTS -------- HEIGHT: 162.6 cm WEIGHT: 69.9 kg BP: 131/67 RVIDd: 2.6 cm (< 3.3) IVSd: 1.0 cm (0.6 - 1.1) LVIDd: 4.3 cm (3.9 - 5.3) LVPWd: 1.2 cm (0.6 - 1.1) IVSs: 1.4 cm LVIDs: 3.1 cm LVPWs: 1.2 cm LA Diam: 2.8 cm (2.7 - 3.8) LAESV Index (A-L): 29.25 ml/m Ao Diam: 3.0 cm (2.0 - 3.7) AV Cusp: 1.9 cm (1.5 - 2.6) LA Diam: 3.1 cm (2.7 - 3.8) MV EXCURSION: 18.048 mm (> 18.000) MV EF SLOPE: 103 mm/s (70 - 150) EPSS: 0.6 cm MV E Shimon: 0.65 m/s MV DecT: 196 ms MV A Shimon: 0.63 m/s MV E/A Ratio: 1.03 RAP: 5.00 mmHg RVSP: 25.78 mmHg FINDINGS -------- Sinus rhythm. This was a technically good study. LV size, wall thickness and systolic function are normal, with an EF greater than 55%. The left zac tricular size is normal. The right ventricle is normal in size. The left atrial size is normal. The right atrial size is normal. There is mild aortic valve sclerosis. There is no evidence of aortic regurgitation. Mild mitral regurgitation is present. Mild tricuspid regurgitation present. There is no evidence of pulmonary hypertension. The right v entricular systolic pressure, as measured by Doppler, is 25.78mmHg. There is no pulmonic regurgitation present. The aortic root size is normal. There is no pericardial effusion. CONCLUSIONS -------- 1. LV size, wall thickness and systolic function are normal, with an EF greater than 55%. 2. The left ventricular size is normal. 3. The right ventricle is normal in size. 4. The left atrial size is normal. 5. The right atrial size is normal. 6. There is mild aortic valve sclerosis. 7. Mild mitral regurgitation is present. 8. Mild tricuspid regurgitation present. 9. There is no evidence of pulmonary hypertension. 10. The right ventricular systolic pressure, as measured by Doppler, is 25.78mmHg. 11. There is no pulmonic regurgitation present. 12. The aortic root size is normal. 13. There is no pericardial effusion. INCOME AUDITOR: Maria Teresa Peter RDCS
--- NOTE | 2018-04-10 12:19 | NM ---
EXAMINATION TYPE: NM stress lexiscan cardiolite DATE OF EXAM: 04/10/2018 COMPARISON: NONE HISTORY: 48-year-old female with chest pain TECHNIQUE: After the intravenous administration of 10.82 mCi Tc 99m Sestamibi - Cardiolite resting S PECT images acquired 45 minutes post injection. The patient received 0.4mg Lexiscan, 24 mCi Tc 99m Sestamibi - Stress images obtained 30 minutes post injection FINDINGS: Review of stress and rest SPECT images demonstrates a small fixed area of perfusion abnormality along the mid anteroseptal wall which is not confirmed on polar maps. Gated analysis shows mild global hyp okinesis with an estimated left ventricular ejection fraction of 46 %. TID is calculated at 1.1, wit hin normal limits. IMPRESSION: 1. Small fixed perfusion defect mid anteroseptal wall could represent an area of old infarct or atten uation artifact as it is not corroborated on Polar maps. 2. No scintigraphic evidence for reversible ischemia. 3. Mildly decreased LVEF of 46%.
--- NOTE | 2018-04-10 13:59 | EST ---
EXERCISE STRESS AGE: 48 SEX: F HT: 5'11" WT: 155 PROTOCOL: Lexiscan Cardiolite Stress Test HEART RATE REST: 75 BLOOD PRESSURE REST: 129/83 MAXIMUM HEART RATE ACHIEVED: 100 MAXIMUM BLOOD PRESSURE: 141/76 85% MPHR: 145 100% MPHR: 170 INDICATIONS: Chest pain. CLINICAL INFORMATION: Patient was given Lexiscan injection over a period of 10 seconds. Peak heart rate of 100 was achieved. Maximum blood pressure of 141/76 mmHg was noted. Resting EKG shows a normal sinus rhythm with normal MN interval and QRS duration and normal ST-T waves. No ST-segment depression suggestive of ischemia is noted. IMPRESSION: There is no evidence of any ST-segment depression suggestive of ischemia during Lexiscan injection. The results of the nuclear study will follow. DALIA / CAN: [id number] /
--- NOTE | 2018-04-10 14:48 | P.CN ---
Psychiatric Consult - . Consult date: 04/10/18 Consult:: 04/10/18 09:56 This patient is a 48-year-old right-handed white female who was brought into the emergency room at [facility] for evaluation of left-sided numbness. She was seen in the emergency room at [facility] by Dr. James. She complained of symptoms of left arm and leg numbness that started on Saturday of this past week. Apparently yesterday she was at work and the numbness persisted along with new onset of headache pain. She was unable to complete her work and then decided to go home. 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 Yesterday along with the headache she states she had some blurring of vision. She went to the walk-in clinic at [facility] earlier today to see if there is anything else that may be needed to be done for her. Apparently she had some x-rays and EKG done and then was advised to go to the hospital as there was concern for possibility of stroke. Apparently yesterday while at work the headache came on suddenly and was present throughout the night. This morning it continued to be quite severe for her. She describes headaches mostly is bifrontal in location. This morning when she awoke she had not only tingling of the left arm and leg but also chest pain. She denied any weakness in the left arm or leg but did complain of the paresthesias. The patient denies any previous history of TIA or stroke. She denied any symptoms of neck pain or stiffness to the ER physician Dr. James today. Patient mentioned that she has been under a great deal of stress since October 2017 when her fianc . She also has been having difficulty with finances. She was interviewed at bedside and was oriented to person place and time and a reliable historian. Review of Systems Constitutional: Denies chills, Denies fever Eyes: denies blurred vision, denies pain Ears, nose, mouth and throat: Denies headache, Denies sore throat Cardiovascular: Denies chest pain, Denies shortness of breath Respiratory: Denies cough Gastrointestinal: Denies abdominal pain, Denies diarrhea, Denies nausea, Denies vomiting Genitourinary: Denies dysuria, Denies hematuria Musculoskeletal: Denies myalgias Integumentary: Denies pruritus, Denies rash Neurological: Reports confusion, Reports headaches, Reports paresthesias, Reports visual changes, Denies numbness, Denies weakness Psychiatric: Reports confusion, Reports insomnia, Reports suicidal ideation, Denies anxiety, Denies depression Endocrine: Denies fatigue, Denies weight change Past Medical History Past Medical History: Asthma, Cancer, Fibromyalgia, GERD/Reflux, Hypertension, Pneumonia Additional Past Medical History / Comment(s): DDD, bronchitis. pt stated has hypertension but not on meds. 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 "has passed blood rectally a few times-last time was few months ago but never f/u with . History of Any Multi-Drug Resistant Organisms: None Reported Past Surgical History: Appendectomy, Section Additional Past Surgical History / Comment(s): liver tumor removed-benign, tubel placed lt ear Past Anesthesia/Blood Transfusion Reactions: No Reported Reaction Additional Past Anesthesia/Blood Transfusion Reaction / Comment(s): clausterphobia Smoking Status: Current every day smoker - Past Family History Mother Family Medical History: Cancer, Hyperlipidemia, Hypertension Additional Family Medical History / Comment(s): colon cancer Sister(s) Family Medical History: Myocardial Infarction ([place]) Additional Family Medical History / Comment(s): from mi at age 50 04/10/18 09:57 Assessment and Plan (1) TIA (transient ischemic attack) Current Visit: Yes Status: Acute Code(s): G45.9 - TRANSIENT CEREBRAL ISCHEMIC ATTACK, UNSPECIFIED SNOMED Code(s): 160851449 (2) Arm paresthesia, left Current Visit: Yes Status: Acute Code(s): R20.2 - PARESTHESIA OF SKIN SNOMED Code(s): 08605397 (3) Suicidal ideation Current Visit: Yes Status: Acute Code(s): R45.851 - SUICIDAL IDEATIONS SNOMED Code(s): 5556104 not currently suicidal (4) Chest pain Current Visit: Yes Status: Acute Code(s): R07.9 - CHEST PAIN, UNSPECIFIED SNOMED Code(s): 21354503 (5) Depression Current Visit: Yes Status: Acute Code(s): F32.9 - MAJOR DEPRESSIVE DISORDER , SINGLE EPISODE, UNSPECIFIED SNOMED Code(s): 35127046 04/10/18 09:58 Assessment and Plan Plan: Assessment and plan #1 chest pain with some atypical features for acute coronary syndrome. Troponins are negative 3. EKG shows normal sinus rhythm with T wave inversion noted in the anterior leads. #2 strong family history of premature coronary artery disease in her sister who had a myocardial infarction at the age of 50 #3 nicotine dependence #4 hypertension #5 hyperlipidemia untreated #6 depression and significant recent increased stress levels. We will address this with the patient and she is currently not suicidal homicidal she has significant life stressors and needs psychotherapy to help alleviate her current set hopeless depressed situational life circumstances including the of her fianc. 04/10/18 14:40 She currently is not suicidal homicidal. She does have depression minutes more related to what homes and Ray related as the of her fianc being kicked out of her home that she was living in moving into different apartments and having to work full-time. She does not need a current sitter and discussed with the nursing staff that she is not actively suicidal and does not need a one -to-one for safety. Recommendations would be for stopping her Cymbalta and switching to venlafaxine 37.5 mg with gradual titration weekly to at least 225 mg at bedtime. She does have great amount of difficulty with sleep focus and concentration and has racing thoughts at night and would add Lamictal 25 mg by mouth daily at bedtime which would increase her sleep and decrease her racing thoughts. We discussed in detail about her going to a therapist and she is stressed with money or shows therefore hope this be transmitted to the primary care doctor so she can do the adjustment in medications. We also be helpful if the primary care physician needs any additional information would be more available to be on phone for consultation help her. The patient presents alert, pleasant, and cooperative. There calmly seated without any agitated behavior. [She] reports that [her ] mood is good. Affect is congruent and depressed. [She] deny having any suicidal or homicidal ideation intent or plan. [She] denies any auditory or visual hallucinations. There is no evidence of any delusional thought content. [Her] thought process is linear and goal-directed. [Her] speech is fluent and nonpressured. [Her] memory and concentration is grossly intact for the purposes of this session. Thank you for the consult 04/10/18 14:46
[2018-04-10 16:31] VITALS: BP 144/72; PULSE 88; TEMP 98.6
[2018-04-10] MEDS ORDERED: ATORVASTATIN 20 MG TAB PO SCH (21:00)
[2018-04-10] MEDS ORDERED: ATORVASTATIN 80 MG TAB PO SCH (21:00)
--- NOTE | 2018-04-10 22:08 | DS ---
DISCHARGE SUMMARY FINAL DIAGNOSES: 1. Chest pain, possible unstable angina. 2. Acute urinary tract infection present on admission. 3. Stress test showing only fixed defect and no reversible abnormality. 4. Possible transient ischemic attack. 5. Depression. 6. History of asthma. 7. History of fibromyalgia. 8. Gastroesophageal reflux disease. 9. Hypertension. 10.History of pneumonia. 11.History of bronchitis. 12.History of caesarean section. 13.History of continued ongoing nicotine dependence. 14.Hyperlipidemia. DISCHARGE DISPOSITION: The patient is being discharged in stable condition with guarded prognosis. HISTORY OF PRESENT ILLNESS: This 48-year-old woman with past medical history of multiple medical problems, admitted with chest pain. Patient also has multiple other medical issues including left arm numbness and also features of depression also. The patient had MRI scan. Complete neurovascular workup. Neurology recommended outpatient followup. Cardiology saw the patient. Lexiscan stress test was done showed only fixed defect. No reversible defect was noted. Patient is being discharged in stable condition with guarded prognosis. On exam, vital signs are stable. Cardiovascular: S1, S2. Abdomen soft. Nervous system: No focal deficits. DISCHARGE ADVICE AND MEDICATIONS: 1. Diet is cardiac diet. 2. Activity limited until followup. 3. Follow up with Dr. Judge in 2-3 days. 4. Follow up with cardiology and neurology and recommend. 5. Follow up with [facility] in 1 week. MEDICATIONS: 1. Xanax 0.5 b.i.d. p.r.n. 2. Lioresal 20 mg t.i.d. p.r.n. 3. Cymbalta 30 mg p.o. b.i.d. 4. [place] 10 mg t.i.d. p.r.n. 5. Prilosec 20 mg p.o. daily. 6. Aspirin 81 mg p.o. daily. 7. Lipitor 80 mg q.h.s. 8. Levaquin 500 mg p.o. daily for 5 days. 9. Lopressor 12.5 mg p.o. daily. 10.Habitrol 21. MMODL / IJN: [id number] /
[2018-04-11] MEDS ORDERED: LEVOFLOXACIN 500 MG TAB PO SCH (09:00)
== END 2018-04-10 17:38 | disposition home or self-care (01) | DRG 311 ==
LOC: EC 13:30 → 6SEL 16:10
PROVIDERS: ADMIT Hospitalist; ATTEND Hospitalist
DX: I20.0 Unstable angina (principal); N39.0 Urinary tract infection, site not specified; R45.851 Suicidal ideations; G45.9 Transient cerebral ischemic attack, unspecified; E78.5 Hyperlipidemia, unspecified; F17.200 Nicotine dependence, unspecified, uncomplicated; F32.9 Major depressive disorder, single episode, unspecified; G89.4 Chronic pain syndrome; I10 Essential (primary) hypertension; J44.9 Chronic obstructive pulmonary disease, unspecified; K21.9 Gastro-esophageal reflux disease without esophagitis; M79.7 Fibromyalgia; Z80.0 Family history of malignant neoplasm of digestive organs; Z82.3 Family history of stroke; Z82.49 Family history of ischemic heart disease and other diseases of the circulatory system; Z87.01 Personal history of pneumonia (recurrent); Z87.442 Personal history of urinary calculi; Z79.891 Long term (current) use of opiate analgesic; Z79.899 Other long term (current) drug therapy; Z88.2 Allergy status to sulfonamides
CPT/HCPCS: 36415; 70450; 70551; 71046; 78452; 80048; 80053; 80061; 80306; 81001; 82550; 82553; 83735; 84484; 85025; 85610; 85730; 93005; 93017; 93306; 93880; 95816; 96374; 96375; 99285

== ENCOUNTER → 2018-07-08 | Outpatient (CLI) | payer BC ==
--- NOTE | 2018-07-09 07:16 | US ---
EXAMINATION TYPE: US kidneys/renal and bladder DATE OF EXAM: 07/08/2018 COMPARISON: NONE CLINICAL HISTORY: R33.9 retention of urine, renal colic N23. Patient states she feel likes she has to urinate all the time, bilateral flank pain margin see EXAM MEASUREMENTS: Right Kidney: 9.9 x 4.7 x 3.8 cm Left Kidney: 9.6 x 4.6 x 4.6 cm Right Kidney: wnl Left Kidney: wnl Bladder: distended, wnl Bilateral Jets not seen. IMPRESSION: 1. Retroperitoneal ultrasound appears unremarkable as visualized. Ureteral jets were not identified d uring this examination.
== END | disposition home or self-care (01) ==
LOC: RADUSWWP 15:50
PROVIDERS: ATTEND Family Medicine
DX: N23 Unspecified renal colic (principal); R35.0 Frequency of micturition; R33.9 Retention of urine, unspecified
CPT/HCPCS: 76770

== ENCOUNTER → 2018-11-25 | Outpatient (CLI) | payer OTHER ==
--- NOTE | 2018-11-25 18:06 | US ---
EXAMINATION TYPE: US abdomen complete DATE OF EXAM: 11/25/2018 COMPARISON: Renal US 07/08/2019 CLINICAL HISTORY: R10.10 UPPER ABD PAIN,R14.0 ABD DISTENTION;nausea, vomiting, diarrhea, constipation ; para umbilical abdominal distention; patient stated had benign liver tumor resected. EXAM MEASUREMENTS: Liver Length: 12.3 cm Gallbladder Wall: 0.25 cm CBD: 0.2 cm Spleen: 7.9 cm Right Kidney: 10.3 x 5.7 x 3.7 cm Left Kidney: 9.4 x 4.5 x 4.7 cm Pancreas: wnl Liver: no masses seen Gallbladder: wnl Evidence for sonographic Buenrostro's sign: no CBD: wnl Spleen: wnl Right Kidney: No hydronephrosis or masses seen Left Kidney: No hydronephrosis or masses seen Upper IVC: wnl Abd Aorta: size is wnl; intimal wall thickening is noted mid and distally. Hyperechoic bowel is noted at patient's area of distention. US technologist findings called to SUKH Lou, at exam's end for this patient. IMPRESSION: No acute process.
== END | disposition home or self-care (01) ==
LOC: RADUSWWP 16:54
PROVIDERS: ATTEND Family Medicine
DX: R10.10 Upper abdominal pain, unspecified (principal); R11.0 Nausea; R14.0 Abdominal distension (gaseous)
CPT/HCPCS: 76700

== ENCOUNTER → 2018-12-10 | Outpatient (CLI) | payer OTHER ==
--- NOTE | 2018-12-10 10:29 | CT ---
EXAMINATION TYPE: CT abdomen pelvis w con DATE OF EXAM: 12/10/2018 HISTORY: Abd pain and distention CT DLP: 628.8mGycm Automated Exposure Control for Dose Reduction was Utilized. CONTRAST: CT scan of the abdomen and pelvis is performed with IV Contrast, patient injected with 100 mL of Isov ue 300. COMPARISON: Complete abdominal ultrasound November 25, 2018. FINDINGS: LUNG BASES: No significant abnormality is appreciated. LIVER/GB: No significant abnormality is appreciated. PANCREAS: No significant abnormality is seen. SPLEEN: No significant abnormality is seen. ADRENALS: No significant abnormality is seen. KIDNEYS: Symmetric cortical medullary uptake and excretion from both kidneys without hydronephrosis s een bilaterally. Nondependent air is present in bladder. No suspicious wall thickening or intralumina l mass. BOWEL: Oral contrast reaches level of sigmoid colon. There is no suspicious small or large bowel dila tation. Appendix felt within normal limits axial image 64 from base of cecum in the right pelvis ante riorly. Occasional scattered diverticula in the left and sigmoid colon without CT evidence for acute diverticulitis UTERUS/ADNEXA: Anteverted uterus projects to right of midline. LYMPH NODES: No greater than 1cm abdominal or pelvic lymph nodes are appreciated. OSSEOUS STRUCTURES: No significant abnormality is seen. OTHER: Moderate calcified plaque of aorta extends into iliac branch vessels. IMPRESSION: Nondependent air is presumed product of recent Rubi catheterization. Correlate clinicall y otherwise other etiologies such as fistula or infection need to be considered. No ascites is presen t. No bowel obstruction. No acute finding is otherwise seen to account for patient's symptoms.
== END | disposition home or self-care (01) ==
LOC: RADCTMAIN 08:00
PROVIDERS: ATTEND Physician Assistant Medical
DX: R10.84 Generalized abdominal pain (principal); R14.0 Abdominal distension (gaseous)
CPT/HCPCS: 74177; Q9967

== ENCOUNTER 2018-12-12 09:28 | Emergency (ER) | payer OTHER ==
[2018-12-12 09:32] VITALS: PULSE 72; TEMP 97.5
[2018-12-12] MEDS ORDERED: SODIUM CHLORIDE 0.9% 1,000 ML IV STA (10:11)
--- NOTE | 2018-12-12 10:38 | ED ---
General Adult HPI - General Chief complaint: Urogenital Stated complaint: UTI Time Seen by Provider: 12/12/18 10:07 Source: patient, RN notes reviewed Mode of arrival: ambulatory Limitations: no limitations - History of Present Illness Initial comments: 48-year-old female with a conjugated past medical history presents to the emergency department for a chief complaint of abnormal finding on CAT scan. Patient states that she was told by her doctor to come to the ER for an air bubble in the bladder found on CAT scan on Saturday. Patient states she has been having active abdominal pain for about a month. States CAT scan was ordered and this is what they found. Patient has not followed up with a specialist. States her doctor was concerned for an infection with the air bubble being in the bladder. Patient denies dysuria. Does admit to lower abdominal pain. Denies diarrhea. Denies hematochezia or melena. Patient has no other complaints at this time including shortness of breath, chest pain, nausea or vomiting, headache, or visual changes. - Related Data Home Medications Medication Instructions Recorded Confirmed HYDROcodone/APAP 10-325MG [[place] 1 tab PO TID PRN 11/19/17 12/12/18 10-325] Omeprazole [PriLOSEC] 20 mg PO DAILY 11/19/17 12/12/18 Baclofen [Lioresal] 20 mg PO TID PRN 01/16/18 12/12/18 ALPRAZolam [Xanax] 0.25 mg PO BID PRN 04/09/18 12/12/18 Atorvastatin [Lipitor] 80 mg PO DAILY 12/12/18 12/12/18 Previous Rx's Medication Instructions Recorded Metoprolol Tartrate [Lopressor] 12.5 mg PO DAILY #30 dose 04/10/18 Allergies Allergy/AdvReac Type Severity Reaction Status Date / Time Sulfa (Sulfonamide Allergy Rash/Hives Verified 12/12/18 10:06 Antibiotics) Review of Systems ROS Statement: Those systems with pertinent positive or pertinent negative responses have been documented in the HPI. ROS Other: All systems not noted in ROS Statement are negative. Past Medical History Past Medical History: Asthma, Cancer, Fibromyalgia, GERD/Reflux, Hypertension, Pneumonia Additional Past Medical History / Comment(s): DDD, bronchitis. pt stated has hypertension but not on meds. 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 "has passed blood rectally a few times-last time was few months ago but never f/u with . History of Any Multi-Drug Resistant Organisms: None Reported Past Surgical History: Appendectomy, Section Additional Past Surgical History / Comment(s): liver tumor removed-benign, tubel placed lt ear Past Anesthesia/Blood Transfusion Reactions: No Reported Reaction Additional Past Anesthesia/Blood Transfusion Reaction / Comment(s): clausterphobia Past Psychological History: Depression Smoking Status: Current every day smoker Past Alcohol Use History: None Reported Past Drug Use History: Marijuana - Past Family History Mother Family Medical History: Cancer, Hyperlipidemia, Hypertension Additional Family Medical History / Comment(s): colon cancer Sister(s) Family Medical History: Myocardial Infarction ([place]) Additional Family Medical History / Comment(s): from mi at age 50 Father Family Medical History: Hypertension General Exam Limitations: no limitations General appearance: alert, in no apparent distress Head exam: Present: atraumatic, normocephalic, normal inspection Eye exam: Present: normal appearance, PERRL, EOMI. Absent: scleral icterus, conjunctival injection, periorbital swelling ENT exam: Present: normal exam, normal oropharynx, mucous membranes moist, TM's normal bilaterally, normal external ear exam Neck exam: Present: normal inspection, full ROM. Absent: tenderness, meningismus, lymphadenopathy Respiratory exam: Present: normal lung sounds bilaterally. Absent: respiratory distress, wheezes, rales, rhonchi, stridor Cardiovascular Exam: Present: regular rate, normal rhythm, normal heart sounds. Absent: systolic murmur, diastolic murmur, rubs, gallop, clicks GI/Abdominal exam: Present: soft, tenderness (Patient does have some generalized lower abdominal tenderness ), normal bowel sounds. Absent: distended, guarding, rebound, rigid Back exam: Absent: CVA tenderness (R), CVA tenderness (L), vertebral tenderness (No Thoracic or lumbar spine tenderness) Neurological exam: Present: alert, oriented X3, CN II-XII intact Psychiatric exam: Present: normal affect, normal mood Course Vital Signs 12/12/18 09:29 Temperature 97.5 F L Pulse Rate 72 Respiratory 16 Rate Blood Pressure 133/88 O2 Sat by Pulse 99 Oximetry Medical Decision Making - Medical Decision Making 48-year-old female presents to the emergency determine for chief pain of abnormal finding on CAT scan. Patient states there was an air bubble found in her bladder. States she has been having some abdominal pain for about a month now as well as some back pain. I did review the CAT scan which showed a nondependent air presumed positive Rubi catheterization however patient denies any recent catheterizations. Otherwise there was concern for fistula or infection. However patient's urine is completely clear. CBC and CMP are both unremarkable. White blood count is 7. Vitals are stable. At this time as urine is completely care and blood work is unremarkable air bubble was likely an incidental finding. However is patient has had persistent pain and will refer her to GI. Patient will return here if she has any worsening symptoms. - Lab Data Result diagrams: 12/12/18 10:30 12/12/18 10:30 Lab Results 12/12/18 12/12/18 12/12/18 Range/Units 10:30 10:30 10:30 WBC 7.7 (3.8-10.6) k/uL RBC 4.75 (3.80-5.40) m/uL Hgb 14.2 (11.4-16.0) gm/dL Hct 44.0 (34.0-46.0) % MCV 92.5 (80.0-100.0) fL MCH 29.9 (25.0-35.0) pg MCHC 32.4 (31.0-37.0) g/dL RDW 13.5 (11.5-15.5) % Plt Count 311 (150-450) k/uL Neutrophils % 48 % Lymphocytes % 42 % Monocytes % 5 % Eosinophils % 3 % Basophils % 0 % Neutrophils # 3.7 (1.3-7.7) k/uL Lymphocytes # 3.2 (1.0-4.8) k/uL Monocytes # 0.4 (0-1.0) k/uL Eosinophils # 0.2 (0-0.7) k/uL Basophils # 0.0 (0-0.2) k/uL Sodium 143 (137-145) mmol/L Potassium 4.5 (3.5-5.1) mmol/L Chloride 108 H (98-107) mmol/L Carbon Dioxide 28 (22-30) mmol/L Anion Gap 7 mmol/L BUN 15 (7-17) mg/dL Creatinine 0.90 (0.52-1.04) mg/dL Est GFR (CKD-EPI)AfAm 87 (>60 ml/min/1.73 sqM) Est GFR (CKD-EPI)NonAf 75 (>60 ml/min/1.73 sqM) Glucose 87 (74-99) mg/dL Calcium 10.6 H (8.4-10.2) mg/dL Total Bilirubin 0.5 (0.2-1.3) mg/dL AST 26 (14-36) U/L ALT 22 (9-52) U/L Alkaline Phosphatase 91 (38-126) U/L Total Protein 7.1 (6.3-8.2) g/dL Albumin 4.6 (3.5-5.0) g/dL Amylase 81 (30-110) U/L Lipase 95 (23-300) U/L Urine Color Light Yellow Urine Appearance Clear (Clear) Urine pH 7.0 (5.0-8.0) Ur Specific [place] 1.007 (1.001-1.035) Urine Protein Negative (Negative) Urine Glucose (UA) Negative (Negative) Urine Ketones Negative (Negative) Urine Blood Negative (Negative) Urine Nitrite Negative (Negative) Urine Bilirubin Negative (Negative) Urine Urobilinogen <2.0 (<2.0) mg/dL Ur Leukocyte Esterase Negative (Negative) Disposition Clinical Impression: Abdominal pain Disposition: HOME SELF-CARE Condition: Good Instructions (If sedation given, give patient instructions): Abdominal Pain (ED) Additional Instructions: Please follow up with GI in 1-2 days. Follow-up with primary care in 1-2 days. Return here if you are having any worsening symptoms. Is patient prescribed a controlled substance at d/c from ED?: No Referrals: Divya Judge III, MD [Primary Care Provider] - 1-2 days Vipul Nayak MD [STAFF PHYSICIAN] - 1-2 days Time of Disposition: 12:48
[2018-12-12 10:41] LABS: Basophils % (A) 0 %; Eosinophils # (A) 0.2 k/uL (0-0.7); Eosinophils % (A) 3 %; HGB 14.2 gm/dL (11.4-16.0); Lymphocytes # (A) 3.2 k/uL (1.0-4.8); Lymphocytes % (A) 42 %; MCH 29.9 pg (25.0-35.0); MCHC 32.4 g/dL (31.0-37.0); MCV 92.5 fL (80.0-100.0); Mean Platelet Volume 7.1; Monocytes # (A) 0.4 k/uL (0-1.0); Monocytes % (A) 5 %; Neutrophils # (A) 3.7 k/uL (1.3-7.7); Neutrophils % (A) 48 %; Platelet Count 311 k/uL (150-450); RBC 4.75 m/uL (3.80-5.40); RDW 13.5 % (11.5-15.5); WBC 7.7 k/uL (3.8-10.6)
[2018-12-12 11:03] LABS: Albumin 4.6 g/dL (3.5-5.0); Calcium 10.6 mg/dL (8.4-10.2); Potassium 4.5 mmol/L (3.5-5.1); Total Bilirubin 0.5 mg/dL (0.2-1.3); Total Protein 7.1 g/dL (6.3-8.2)
[2018-12-12 11:15] LABS: Appearance,Urine Clear (Clear); Bilirubin,Urine Negative (Negative); Blood,Urine Negative (Negative); Color,Urine Light Yellow; Glucose,Urine (UA) Negative (Negative); Ketones,Urine Negative (Negative); Leukocyte Esterase,Urine Negative (Negative); Nitrite,Urine Negative (Negative); Protein,Urine Negative (Negative); Specific Gravity,Urine 1.007 (1.001-1.035); Urobilinogen,Urine <2.0 mg/dL (<2.0)
[2018-12-12] MEDS ORDERED: MORPHINE SULFATE 4 MG/ML SYRINGE IVP STA (11:49)
[2018-12-12 13:18] VITALS: BP 117/76; RESP 18
== END 2018-12-12 13:18 | disposition home or self-care (01) ==
LOC: EC 09:28
DX: R10.30 Lower abdominal pain, unspecified (principal); M54.9 Dorsalgia, unspecified; R93.5 Abnormal findings on diagnostic imaging of other abdominal regions, including retroperitoneum; K21.9 Gastro-esophageal reflux disease without esophagitis; F17.200 Nicotine dependence, unspecified, uncomplicated; Z85.9 Personal history of malignant neoplasm, unspecified; Z87.442 Personal history of urinary calculi; Z90.49 Acquired absence of other specified parts of digestive tract; Z79.899 Other long term (current) drug therapy; Z88.2 Allergy status to sulfonamides
CPT/HCPCS: 99284; 96374; 96361; 36415; 80053; 82150; 83690; 85025; 81003; J2270

== ENCOUNTER → 2019-01-16 | Day surgery (SDC) | payer OTHER ==
[2019-01-13 16:36] VITALS: BMI 23.0
[~2019-01-16] MED LIST: LACTATED RINGERS 1,000 ML IV SCH; LIDOCAINE 1% 20 ML VIAL (10MG/ML) FOR IV START INTRADERMA ONE; LIDOCAINE 1% INJ 10MG/ML (20 ML MDV) ONE; PROPOFOL 10 MG/ML 20 ML VIAL IV ONE
[2019-01-16 11:12] VITALS: TEMP 97.7
--- NOTE | 2019-01-16 12:32 | P.PCN ---
Date of Procedure: 01/16/19 Procedure(s) Performed: Brief history: Patient is a pleasant 48-year-old white female, scheduled for an elective upper endoscopy as well as colonoscopy as a part of evaluation of left-sided abdominal pain, chronic diarrhea for the last several months duration. Procedure performed: Esophagogastroduodenoscopy with biopsy Colonoscopy with biopsy Preoperative diagnosis: Left-sided abdominal pain Chronic diarrhea Intermittent nausea and vomiting Anesthesia: MAC Procedure: After informed consent was obtained from the patient was brought into the endoscopy unit and IV sedation was administered by anesthesia under continuous monitoring. Initially upper endoscopy was done. The Olympus GF 160 video en doscope was inserted inserted into the mouth and esophagus intubated without any difficulty and was gradually advanced into the stomach and duodenum and carefully examined. The bulb and second part of the duodenum appeared normal. Biopsies were done from the duodenum to rule out celiac disease. The scope was then withdrawn into the stomach adequately insufflated with air and upon careful examination the antrum had mild gastritis and biopsies were done from this area. The body, cardia and fundus appeared normal. The scope was then withdrawn into the esophagus. The GE junction was located at 40 cm to the incisors. It appeared reg 2 superficial erosions consistent with LA grade a reflux esophagitis. Rest of the esophagus appeared normal and the patient tolerated the procedure well. At this time the patient continued to remain sedation. Initial digital rectal examination was normal. Olympus CF 160 video colonoscope was then inserted into the rectum and gradually advanced to the cecum without any difficulty. Careful examination was performed as the scope was gradually being withdrawn. The prep was excellent. The cecum, ascending colon, transverse colon, descending colon, sigmoid colon and rectum appeared normal. Retroflexion was performed in the rectum and no lesions were noted. random biopsies were done from ascending and descending colon to rule out microscopic/collagenous colitis. Patient tolerated the procedure well. Impression: 1. Upper Endoscopy revealed minimal antral gastritis and a grade a reflux esophagitis 2. Colonoscopy was essentially within normal limits with no evidence of colitis or colorectal neoplasia Recommendations: Findings of this examination were discussed with the patient as well as her family. She was advised to follow with the biopsy results. She can have a repeat screening colonoscopy in 10 years.
[2019-01-16 12:42] VITALS: PULSE 96
[2019-01-16 12:57] VITALS: BP 98/57; RESP 17
== END ==
LOC: ORWHC2ENDO 10:38
PROVIDERS: ATTEND Internal Medicine Gastroenterology
DX: K29.50 Unspecified chronic gastritis without bleeding (principal); K52.9 Noninfective gastroenteritis and colitis, unspecified; K21.0 Gastro-esophageal reflux disease with esophagitis; M79.7 Fibromyalgia; I25.10 Atherosclerotic heart disease of native coronary artery without angina pectoris; I25.2 Old myocardial infarction; J45.909 Unspecified asthma, uncomplicated; I10 Essential (primary) hypertension; Z88.2 Allergy status to sulfonamides; F17.200 Nicotine dependence, unspecified, uncomplicated; Z79.899 Other long term (current) drug therapy; Z79.891 Long term (current) use of opiate analgesic
CPT/HCPCS: 88305; 45380; 43239; J2001; J2704

== ENCOUNTER → 2019-08-25 | Outpatient (CLI) | payer OTHER ==
--- NOTE | 2019-08-27 09:52 | MM ---
Reason for exam: screening (asymptomatic). History: Patient is postmenopausal. Physical Findings: A clinical breast exam by your physician is recommended on an annual basis and results should be correlated with mammographic findings. MG Screening Mammo w CAD Bilateral CC and MLO view(s) were taken. No prior studies available for comparison. The breast tissue is heterogeneously dense. This may lower the sensitivity of mammography. There is no discrete abnormality. ASSESSMENT: Negative, BI-RAD 1 RECOMMENDATION: Routine screening mammogram of both breasts in 1 year.
== END | disposition home or self-care (01) ==
LOC: RADMAMWWP 14:23
PROVIDERS: ATTEND Family Medicine
DX: Z12.31 Encounter for screening mammogram for malignant neoplasm of breast (principal)
CPT/HCPCS: 77067

== ENCOUNTER → 2019-10-03 | Outpatient (CLI) | payer OTHER ==
--- NOTE | 2019-10-03 09:09 | XR ---
EXAMINATION TYPE: XR Hip Complete LT DATE OF EXAM: 10/03/2019 CLINICAL HISTORY: Left hip pain. TECHNIQUE: AP and frogleg views of the left hip are obtained. COMPARISON: CT abdomen and pelvis December 10, 2018. FINDINGS: There is no acute fracture/dislocation evident in the left hip. Mild axial joint space los s without significant spurring. The overlying soft tissue appears unremarkable. IMPRESSION: As above. No significant change from recent CT.
== END | disposition home or self-care (01) ==
LOC: RADXRMAIN 08:46
PROVIDERS: ATTEND Nurse Practitioner Family
DX: M25.552 Pain in left hip (principal)
CPT/HCPCS: 73502

== ENCOUNTER → 2019-10-08 | Outpatient (CLI) | payer OTHER ==
--- NOTE | 2019-10-08 15:44 | US ---
EXAMINATION TYPE: US kidneys/renal and bladder DATE OF EXAM: 10/08/2019 COMPARISON: CT, US CLINICAL HISTORY: R31.9 HEMATURIA. Patient stated has had renal stones; bilateral flank pain x months EXAM MEASUREMENTS: Right Kidney: 9.7 x 4.4 x 4.0 cm Left Kidney: 9.9 x 4.5 x 5.1 cm Post Void Residual Volume: 67.2 mL Right Kidney: small calcification noted lateral cortex = 0.3 x 0.2 x 0.2 Left Kidney: No hydronephrosis or masses seen Bladder: wnl Bilateral Jets seen: only small right ureteral jet seen Normal Post Void Residual: no, as post void volume is greater than 50.0ml. IMPRESSION: 1. Small right-sided 3 mm calcification could represent a nonobstructing punctate calculus or distal renal artery calcification. 2. Abnormal post void residual in the urinary bladder of 67.2.
== END | disposition home or self-care (01) ==
LOC: RADUSWWP 14:57
PROVIDERS: ATTEND Family Medicine
DX: N28.89 Other specified disorders of kidney and ureter (principal); R39.198 Other difficulties with micturition
CPT/HCPCS: 76770

== ENCOUNTER → 2019-12-31 | Outpatient (CLI) | payer OTHER ==
--- NOTE | 2020-01-01 06:53 | MR ---
EXAMINATION TYPE: MR hips BILAT wo con DATE OF EXAM: 12/31/2019 COMPARISON: CT abdomen and pelvis December 10, 2018 HISTORY: Bilateral Hip Pain x a few Months Standard multiplanar, multisequence MRI departmental protocol Multiplanar, multisequence images of the pelvis focusing on both hips were acquired. FINDINGS: There is symmetric fairly moderate axial joint space loss in both hips with symmetric small -to-moderate sized joint effusions. Femoral head shapes are maintained bilaterally. Mild bilateral ac etabular spurring. No significant subchondral cystic change. Some increased fluid signal at greater trochanter level bilaterally greater on the right with adjacen t area of abnormal bone marrow edema. Femoral heads and necks bilaterally show no suspicious edema. N o serpiginous low T1 signal to suggest avascular necrosis is noted. No suspicious groin adenopathy or hernia is present bilaterally. Muscle bulk is symmetric and felt wi thin normal limits in both hips. Anteverted uterus. No suspicious bowel dilatation. No concerning pelvic fluid collection. Incidental moderate narrowing and spurring in the lower lumbar spine greatest left L5-S1 level where there are s ome endplate changes. IMPRESSION: Fairly moderate degenerative changes in both hips along with right greater than left grea ter trochanteric bursitis as detailed above.
== END | disposition home or self-care (01) ==
LOC: RADMRIMAIN 11:59
PROVIDERS: ATTEND Nurse Practitioner Family
DX: M25.551 Pain in right hip (principal); M25.552 Pain in left hip

== ENCOUNTER → 2020-01-23 | Outpatient (CLI) | payer OTHER ==
--- NOTE | 2020-01-24 22:38 | CT ---
EXAMINATION TYPE: CT chest wo con DATE OF EXAM: 01/23/2020 COMPARISON: None HISTORY: 49-year-old female Abnormal lung finding on other imaging. TECHNIQUE: Contiguous axial scanning of the chest without IV contrast. Coronal and sagittal reconstru ctions performed. CT DLP: 275.9 mGycm Automated exposure control for dose reduction was used. FINDINGS: Heart normal size without pericardial effusion. Aorta normal caliber with conventional arch vessel branching anatomy. 7 mm precarinal lymph node. No thoracic lymphadenopathy by CT size criteria. Mild centrilobular and paraseptal emphysema. No consolidation or pleural effusion. Mild diffuse bronc hial wall thickening. Visualized upper abdomen shows no gross abnormality. Bones: No osseous destructive process. IMPRESSION: COPD WITH MILD EMPHYSEMA. NO ACUTE PULMONARY PROCESS.
== END | disposition home or self-care (01) ==
LOC: RADCTMAIN 10:27
PROVIDERS: ATTEND Family Medicine
DX: J43.8 Other emphysema (principal)
CPT/HCPCS: 71250

== ENCOUNTER 2020-01-26 09:51 | Emergency (ER) | payer OTHER ==
[2020-01-26 10:05] VITALS: RESP 18
--- NOTE | 2020-01-26 10:25 | ED ---
Abdominal Pain HPI - General Chief Complaint: Abdominal Pain Stated Complaint: abd pain/swelling Time Seen by Provider: 01/26/20 10:08 Source: patient Mode of arrival: ambulatory Limitations: no limitations - History of Present Illness Initial Comments: 49-year-old female presents today for chief complaint of swelled up abdominal pain/swelling/bloating for the past 3+ weeks. Patient states the past 3+ weeks she has been having the sensation in her abdomen is swollen she states is tender in the mid to left upper abdomen. Patient denies any vomiting nausea diarrhea she denies constipation chest pain shortness of breath patient denies any fevers or upper respiratory symptoms. Patient states she has had previous abdominal surgeries including a liver biopsy which came back as "non-cancerous". Patient states the fullness, bloating sensation wraps around to her back as well. Patient denies known history of hernia. Denies any specific alleviating factors but states that it increases with movement/palpation. Patient states she does use ETOH but occasionally. Patient has no additional complaints. She overall gives vague description of pain/symptoms even when prompted with questions. Upon arrival patient does not appear toxic, no acute distress. - Related Data Home Medications Medication Instructions Recorded Confirmed HYDROcodone/APAP 10-325MG [[place] 1 tab PO QID PRN 11/19/17 01/13/19 10-325] Omeprazole [PriLOSEC] 20 mg PO DAILY 11/19/17 01/13/19 Baclofen [Lioresal] 20 mg PO TID PRN 01/16/18 01/13/19 ALPRAZolam [Xanax] 0.25 mg PO BID PRN 04/09/18 01/13/19 Atorvastatin [Lipitor] 80 mg PO DAILY 12/12/18 01/13/19 ARIPiprazole [Abilify] 15 mg PO DAILY 01/13/19 01/13/19 Albuterol Inhaler (Mhu) [Ventolin 1 - 2 puff INHALATION RT-Q6H PRN 01/13/19 01/13/19 Hfa Inhaler] Metoprolol Tartrate [Lopressor] 12.5 mg PO DAILY 01/13/19 01/13/19 Allergies Allergy/AdvReac Type Severity Reaction Status Date / Time Sulfa (Sulfonamide Allergy Rash/Hives Verified 01/26/20 10:05 Antibiotics) Review of Systems ROS Statement: Those systems with pertinent positive or pertinent negative responses have been documented in the HPI. ROS Other: All systems not noted in ROS Statement are negative. Past Medical History Past Medical History: Cancer, Fibromyalgia, GERD/Reflux, Hypertension, Myocardial Infarction (non Q-wave), Pneumonia Additional Past Medical History / Comment(s): DDD, frequent bronchitis. 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 , hx blood rectally. Last Myocardial Infarction Date:: 2017 History of Any Multi-Drug Resistant Organisms: None Reported Past Surgical History: Appendectomy, Section Additional Past Surgical History / Comment(s): liver tumor removed-benign, tube lt ear Past Anesthesia/Blood Transfusion Reactions: No Reported Reaction, Motion Sickness Additional Past Anesthesia/Blood Transfusion Reaction / Comment(s): clausterphobia Past Psychological History: Anxiety, Depression Smoking Status: Current every day smoker Past Alcohol Use History: Occasional Past Drug Use History: Marijuana - Past Family History Mother Family Medical History: Cancer, Hyperlipidemia, Hypertension Additional Family Medical History / Comment(s): colon cancer Sister(s) Family Medical History: Myocardial Infarction ([place]) Additional Family Medical History / Comment(s): from [place] at age 50 Father Family Medical History: Hypertension General Exam - General Exam Comments Initial Comments: General: The patient is awake and alert, in no distress Eye: +3 mm pupils are equal, round and reactive to light, extra-ocular movements are intact. No nystagmus. There is normal conjunctiva bilaterally. No signs of icterus. Ears, nose, mouth and throat: There are moist mucous membranes and no oral lesions. Neck: The neck is supple, there is no tenderness or JVD. Cardiovascular: There is a regular rate and rhythm. No murmur, rub or gallop is appreciated. Respiratory: Lungs are clear to auscultation, respirations are non-labored, breath sounds are equal. No wheezes, stridor, rales, or rhonchi. Gastrointestinal: [Soft, slightly distended, non-tender abdomen without masses or organomegaly noted. There is no rebound or guarding present. No CVA tenderness. No pulsatile masses or obvious ventral hernia. Musculoskeletal: Normal ROM, no tenderness. Strength 5/5. Sensation intact. Radial pulses equal bilaterally 2+. Neurological: A&O x 3. CN II-XII intact grossly, There are no obvious motor or sensory deficits. Coordination appears grossly intact. Speech is normal. Skin: Skin is warm and dry and no rashes or lesions are noted. Psychiatric: Cooperative, appropriate mood & affect, normal judgment. Limitations: no limitations Course Vital Signs 01/26/20 01/26/20 10:03 11:48 Temperature 98.3 F 98.0 F Pulse Rate 89 87 Respiratory 18 18 Rate Blood Pressure 118/69 118/75 O2 Sat by Pulse 98 98 Oximetry Medical Decision Making - Medical Decision Making 49yo female presenting today for cc of abdominal pain/bloating. VS WNL. Patient appears well nontoxic. Symptoms x [address] (-) for acute process. Patient labs stable no acute findings indicative of distinct acute process at this time. Patient resting comfortably in the room on reevuation. Discussed incidental findings, labs, imaging. Patient is to f/u with GI and PCP is aware of importance of return for worsening symptoms and f/u. Patient discharged appearing well - Lab Data Result diagrams: 01/26/20 10:35 01/26/20 10:41 Lab Results 01/26/20 01/26/20 01/26/20 Range/Units 10:35 10:41 10:41 WBC 9.0 (3.8-10.6) k/uL RBC 4.58 (3.80-5.40) m/uL Hgb 13.6 (11.4-16.0) gm/dL Hct 42.3 (34.0-46.0) % MCV 92.4 (80.0-100.0) fL MCH 29.8 (25.0-35.0) pg MCHC 32.2 (31.0-37.0) g/dL RDW 13.3 (11.5-15.5) % Plt Count 261 (150-450) k/uL Neutrophils % 48 % Lymphocytes % 41 % Monocytes % 7 % Eosinophils % 2 % Basophils % 1 % Neutrophils # 4.3 (1.3-7.7) k/uL Lymphocytes # 3.7 (1.0-4.8) k/uL Monocytes # 0.6 (0-1.0) k/uL Eosinophils # 0.2 (0-0.7) k/uL Basophils # 0.1 (0-0.2) k/uL Sodium 141 (137-145) mmol/L Potassium 4.2 (3.5-5.1) mmol/L Chloride 109 H (98-107) mmol/L Carbon Dioxide 24 (22-30) mmol/L Anion Gap 8 mmol/L BUN 19 H (7-17) mg/dL Creatinine 0.83 (0.52-1.04) mg/dL Est GFR (CKD-EPI)AfAm >90 (>60 ml/min/1.73 sqM) Est GFR (CKD-EPI)NonAf 82 (>60 ml/min/1.73 sqM) Glucose 94 (74-99) mg/dL Calcium 10.0 (8.4-10.2) mg/dL Total Bilirubin 0.5 (0.2-1.3) mg/dL AST 31 (14-36) U/L ALT 24 (4-34) U/L Alkaline Phosphatase 78 (38-126) U/L Total Protein 7.2 (6.3-8.2) g/dL Albumin 4.5 (3.5-5.0) g/dL Amylase 100 (30-110) U/L Lipase 45 (23-300) U/L Urine Color Yellow Urine Appearance Clear (Clear) Urine pH 5.5 (5.0-8.0) Ur Specific Sulphur 1.016 (1.001-1.035) Urine Protein Negative (Negative) Urine Glucose (UA) Negative (Negative) Urine Ketones Negative (Negative) Urine Blood Negative (Negative) Urine Nitrite Negative (Negative) Urine Bilirubin Negative (Negative) Urine Urobilinogen <2.0 (<2.0) mg/dL Ur Leukocyte Esterase Negative (Negative) Disposition Clinical Impression: Abdominal pain, Calcification of bladder, Diverticulosis Disposition: HOME SELF-CARE Condition: Good Additional Instructions: Please use medication as discussed. Please follow-up with family doctor in the next 2 days, recommend GI follow-up with Dr. Fowler if symptoms persist. Please return to emergency room if the symptoms increase or worsen or for any other concerns. Is patient prescribed a controlled substance at d/c from ED?: No Referrals: Divya Judge III, MD [Primary Care Provider] - 1-2 days Domenica Fowler MD [STAFF PHYSICIAN] - 1-2 days Time of Disposition: 11:36
[2020-01-26] MEDS ORDERED: SODIUM CHLORIDE 0.9% 500 ML 500 ML IV ONE (10:26)
[2020-01-26] MEDS ORDERED: MORPHINE SULFATE 4 MG/ML SYRINGE IVP STA (10:26)
[2020-01-26 10:52] LABS: Basophils # (A) 0.1 k/uL (0-0.2); Basophils % (A) 1 %; Eosinophils # (A) 0.2 k/uL (0-0.7); Eosinophils % (A) 2 %; HCT 42.3 % (34.0-46.0); HGB 13.6 gm/dL (11.4-16.0); Lymphocytes # (A) 3.7 k/uL (1.0-4.8); Lymphocytes % (A) 41 %; MCH 29.8 pg (25.0-35.0); MCHC 32.2 g/dL (31.0-37.0); MCV 92.4 fL (80.0-100.0); Mean Platelet Volume 8.3; Monocytes # (A) 0.6 k/uL (0-1.0); Monocytes % (A) 7 %; Neutrophils # (A) 4.3 k/uL (1.3-7.7); Neutrophils % (A) 48 %; Platelet Count 261 k/uL (150-450); RBC 4.58 m/uL (3.80-5.40); RDW 13.3 % (11.5-15.5)
[2020-01-26 10:53] LABS: Appearance,Urine Clear (Clear); Bilirubin,Urine Negative (Negative); Blood,Urine Negative (Negative); Color,Urine Yellow; Glucose,Urine (UA) Negative (Negative); Ketones,Urine Negative (Negative); Leukocyte Esterase,Urine Negative (Negative); Nitrite,Urine Negative (Negative); PH, Urine 5.5 (5.0-8.0); Protein,Urine Negative (Negative); Specific Gravity,Urine 1.016 (1.001-1.035); Urobilinogen,Urine <2.0 mg/dL (<2.0)
[2020-01-26 11:04] LABS: ALT 24 U/L (4-34); AST 31 U/L (14-36); African American GFR (CKD) >90 (>60 ml/min/1.73 sqM); Albumin 4.5 g/dL (3.5-5.0); Alkaline Phosphatase 78 U/L (38-126); Amylase 100 U/L (30-110); Anion Gap 8 mmol/L; Blood Urea Nitrogen 19 mg/dL (7-17); Carbon Dioxide 24 mmol/L (22-30); Chloride 109 mmol/L (98-107); Glucose 94 mg/dL (74-99); Non-African American GFR(CKD) 82 (>60 ml/min/1.73 sqM); Potassium 4.2 mmol/L (3.5-5.1); Sodium 141 mmol/L (137-145); Total Bilirubin 0.5 mg/dL (0.2-1.3); Total Protein 7.2 g/dL (6.3-8.2)
--- NOTE | 2020-01-26 11:28 | CT ---
EXAMINATION TYPE: CT abdomen pelvis w con DATE OF EXAM: 01/26/2020 COMPARISON: 12/10/2018 HISTORY: 49-year-old female LUQ pain TECHNIQUE: Contiguous axial scanning of the abdomen and pelvis following administration of 100 ml Iso blank 300 IV contrast. Delayed images through the kidneys and coronal/sagittal reconstructions perform ed. CT DLP: 956.8 mGycm Automated exposure control for dose reduction was used. FINDINGS: Heart normal size without pericardial effusion. Dependent atelectasis along the posterior lung bases without pleural effusion. No focal liver lesion or biliary ductal dilatation. Portal venous system is patent. Gallbladder, adrenal glands, right kidney, spleen, and pancreas appear within normal limits. Tiny 5 mm cortical hypodensity anterior mid left kidney too small for accurate CT characterization, l ikely a tiny cortical cyst. Moderate atherosclerotic calcifications infrarenal abdominal aorta and iliac arteries without aneurys m. No dilated small bowel, free fluid, or free air. No mesenteric or retroperitoneal lymphadenopathy. Mild diverticular change along the proximal sigmoid. No pericolonic inflammatory change. A 5 mm calcification located along the left posterior bladder wall, possibly a dependent bladder calc ulus, not seen on 12/10/2018. Uterus anteverted. Neither ovary clearly delineated. No abnormal fluid collection in the pelvis or pe lvic lymphadenopathy seen. Bones: Moderate degenerative disc disease at L4-L5. IMPRESSION: 1. MILD PROXIMAL SIGMOID DIVERTICULOSIS WITHOUT ACUTE DIVERTICULITIS. 2. 5 MM CALCIFICATION ALONG THE LEFT POSTERIOR BLADDER WALL, NEW FROM 12/10/2018, POSSIBLE DEPENDENT B LADDER CALCULUS. 3. OTHERWISE, NO ACUTE INFLAMMATORY PROCESS IDENTIFIED IN THE ABDOMEN OR PELVIS TO EXPLAIN THE PATIEN T'S SYMPTOMS.
[2020-01-26 11:53] VITALS: BP 118/75; PULSE 87; TEMP 98
== END 2020-01-26 11:48 | disposition home or self-care (01) ==
LOC: EC 09:51
DX: N32.89 Other specified disorders of bladder (principal); K57.30 Diverticulosis of large intestine without perforation or abscess without bleeding; F41.9 Anxiety disorder, unspecified; F32.9 Major depressive disorder, single episode, unspecified; K21.9 Gastro-esophageal reflux disease without esophagitis; M79.7 Fibromyalgia; I10 Essential (primary) hypertension; I25.2 Old myocardial infarction; F17.200 Nicotine dependence, unspecified, uncomplicated; Z79.899 Other long term (current) drug therapy; Z88.2 Allergy status to sulfonamides; Z87.01 Personal history of pneumonia (recurrent); Z80.0 Family history of malignant neoplasm of digestive organs; Z90.49 Acquired absence of other specified parts of digestive tract; Z85.05 Personal history of malignant neoplasm of liver
CPT/HCPCS: 36415; 80053; 82150; 83690; 85025; 81003; 74177; 99284; 96374; 96361; J2270; Q9967

== ENCOUNTER → 2020-07-19 | Outpatient (CLI) | payer OTHER ==
--- NOTE | 2020-07-19 11:25 | CT ---
EXAMINATION TYPE: CT abdomen pelvis wo con DATE OF EXAM: 07/19/2020 COMPARISON: 01/26/2020 HISTORY: Lt flank pain CT DLP: 352.3 mGycm Examination of the solid and hollow viscera is limited given the lack of contrast. FINDINGS: LUNG BASES: No evidence for nodule. No evidence for infiltrate. LIVER/GB: The gallbladder is unremarkable. No space-occupying hepatic lesion. PANCREAS: No pancreatic mass identified. No inflammatory process seen. SPLEEN: No evidence for splenomegaly. No intrasplenic lesions seen. ADRENALS: No adrenal nodules identified. No evidence for thickening. KIDNEYS: No evidence for renal mass. No nephrolithiasis. No hydronephrosis. BOWEL: Appendix has a normal appearance. No evidence of bowel obstruction. No inflammatory process. Lymph nodes: No evidence for adenopathy greater than 1 cm. Abdominal aorta: Atheromatous changes seen. No evidence for aneurysm. Genital organs: No significant abnormality. Other: No significant abnormality. IMPRESSION: 1. No evidence for hydronephrosis or nephrolithiasis. No acute intra-abdominal process seen.
[2020-07-19 11:28] LABS: Basophils % (A) 0 %; Eosinophils # (A) 0.3 k/uL (0-0.7); Eosinophils % (A) 4 %; HCT 40.2 % (34.0-46.0); HGB 13.1 gm/dL (11.4-16.0); Lymphocytes # (A) 3.1 k/uL (1.0-4.8); Lymphocytes % (A) 48 %; MCH 30.3 pg (25.0-35.0); MCHC 32.6 g/dL (31.0-37.0); MCV 92.9 fL (80.0-100.0); Mean Platelet Volume 8.9; Monocytes # (A) 0.3 k/uL (0-1.0); Monocytes % (A) 4 %; Neutrophils # (A) 2.7 k/uL (1.3-7.7); Neutrophils % (A) 42 %; Platelet Count 258 k/uL (150-450); RBC 4.33 m/uL (3.80-5.40); RDW 13.1 % (11.5-15.5); WBC 6.4 k/uL (3.8-10.6)
[2020-07-19 11:32] LABS: ALT 18 U/L (4-34); AST 26 U/L (14-36); African American GFR (CKD) >90 (>60 ml/min/1.73 sqM); Albumin 4.4 g/dL (3.5-5.0); Alkaline Phosphatase 59 U/L (38-126); Anion Gap 7 mmol/L; Bilirubin, Delta 0.1 mg/dL (0.0-0.2); Bilirubin,Unconjugated 0.2 mg/dL (0.0-1.1); Blood Urea Nitrogen 19 mg/dL (7-17); Calcium 9.7 mg/dL (8.4-10.2); Carbon Dioxide 27 mmol/L (22-30); Chloride 107 mmol/L (98-107); Glucose 91 mg/dL (74-99); Non-African American GFR(CKD) 79 (>60 ml/min/1.73 sqM); Potassium 4.2 mmol/L (3.5-5.1); Sodium 141 mmol/L (137-145); Total Bilirubin 0.3 mg/dL (0.2-1.3)
== END | disposition home or self-care (01) ==
LOC: RADCTMAIN 10:27
PROVIDERS: ATTEND Family Medicine
DX: M54.5 Low back pain (principal); R10.9 Unspecified abdominal pain; R10.32 Left lower quadrant pain; R10.10 Upper abdominal pain, unspecified
CPT/HCPCS: 74176; 80048; 80076; 85025

== ENCOUNTER → 2021-01-05 | Outpatient (CLI) | payer OTHER ==
[2021-01-05 19:19] LABS: Basophils # (A) 0.03 X 10*3/uL (0.00-0.10); Basophils % (A) 0.4 %; Eosinophils # (A) 0.16 X 10*3/uL (0.04-0.35); Eosinophils % (A) 2.1 %; HCT 39.9 % (37.2-46.3); HGB 12.7 g/dL (12.0-15.0); Lymphocytes # (A) 3.67 X 10*3/uL (0.90-5.00); Lymphocytes % (A) 47.7 %; MCH 29.6 pg (27.0-32.0); MCHC 31.8 g/dL (32.0-37.0); Mean Platelet Volume 10.3 fL (9.5-12.2); Monocytes # (A) 0.69 X 10*3/uL (0.20-1.00); Neutrophils # (A) 3.14 X 10*3/uL (1.80-7.70); Neutrophils % (A) 40.7 %; Platelet Count 274 X 10*3/uL (140-440); RBC 4.29 X 10*6/uL (4.10-5.20); RDW 12.9 % (11.5-14.5)
== END | disposition home or self-care (01) ==
LOC: LABWHC1 14:08
PROVIDERS: ATTEND Family Medicine
DX: Z13.0 Encounter for screening for diseases of the blood and blood-forming organs and certain disorders involving the immune mechanism (principal)
CPT/HCPCS: 36415; 85025

== ENCOUNTER → 2022-12-06 | Outpatient (CLI) | payer OTHER ==
--- NOTE | 2022-12-06 17:31 | US ---
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 Small echogenic foci measures 0.3 cm on lat mid kidne y Left Kidney: No hydronephrosis or masses seen small echogenic foci measures 0.4 cm on medial mid kidney Bladder: wnl Bilateral Jets seen: Yes IMPRESSION: An echogenic focus in either kidney measuring up to 4 mm suggesting nonobstructive calculus. No hydro nephrosis.
== END | disposition home or self-care (01) ==
LOC: RADUSWWP 14:10
PROVIDERS: ATTEND Family Medicine
DX: Q27.1 Congenital renal artery stenosis (principal)
CPT/HCPCS: 76770